=== PATIENT | female | born 1980 | race Caucasian/White ===

== ENCOUNTER 2020-06-26 19:05 | Emergency (ER) | payer MEDICAID, SELFPAY ==
--- NOTE | 2020-06-26 19:37 | XR_ITS ---
PROCEDURE: XR LUMBAR SPINE 2-3V CLINICAL INDICATION: PAIN Low back pain COMPARISON: No exams were available for comparison FINDINGS: No fracture or dislocation. No lytic or blastic change. There is normal mineralization. There is straightening of the lumbar lordosis. This is nonspecific but could be seen with muscle spasm. No significant degenerative change evident. There is mild tilting of the patient toward the left. A 2 mm calcific density is present just inferior to the left L1 transverse process and could be due to small stone in the kidney. Other findings:None. IMPRESSION: 1. No acute finding of the lumbar spine with straightening of lumbar lordosis and mild patient tilt. 2. Possible left nephrolithiasis Dictated by: Santana Ellis MD 06/27/2020 05:28 Santana Ellis MD in [place] 06/27/2020 05:28
[2020-06-26 19:38] VITALS: BP 140/73; PULSE 81; RESP 19; TEMP 36.8; O2SAT 98; BMI 26.6
[2020-06-26 19:43] VITALS: BP 140/73; PULSE 81; RESP 19; TEMP 36.8; O2SAT 98
--- NOTE | 2020-06-26 20:01 | HMH.EDUTC ---
[facility] [place] Clinical Impression: Low back pain Qualifiers: Chronicity: unspecified Back pain laterality: midline Sciatica presence: without sciatica Qualified Code(s): M54.5 - Low back pain Disposition: Home, Self-Care Condition on Discharge: Good Instructions: DI for Low Back Pain, DI for Chronic Pain -- Adult, Cyclobenzaprine, Etodolac Additional Instructions: *Etodolac donn 6 hours with meal as needed for pain/inflammation *Remember you had a Toradol shot in the clinic today, which is similar to Motrin and Etodolac and should last for 8-10 hours *Not additional anti-inflammatory like motrin, aleve, advil or ibuprofen with the above amount of etodalac You can still take Tylenol every 4 hours as needed if you need something else for pain *moist heat every 20 minutes 3-4 times a day to affected area *Muscle relaxer every 8 hours as needed for muscle spasms but remember, it WILL cause drowsiness You cannot take it and drive, operate machinery or care for small children. *Keep this area active, no movement leads to more stiffness, However take it easy and avoid heavy lifting pushing or pulling *Follow up with you family doctor if no improvement for further treatment Prescriptions: Etodolac [Etodolac 200mg Cap*] 200 mg PO Q6H PRN #20 cap PRN Reason: Moderate Pain Transmission Status: Received by [facility] Cyclobenzaprine HCl [Flexeril 10mg tablet] 10 mg PO TID PRN #15 tab PRN Reason: Muscle Spasm Transmission Status: Received by [facility] Referrals: PCP,No [Primary Care Provider] - As needed Time of Disposition: 20:15 Medical Decision Making - Dirk Inquiry Pt receiving controlled substance: No Dirk was queried for this patient: No Vital Signs: 06/26/20 19:38 06/26/20 19:43 Temperature 98.2 F 98.2 F Temperature Source Oral Pulse Rate 81 Pulse Rate [Left] 81 Respiratory Rate 19 19 Blood Pressure 140/73 Blood Pressure [Right Arm] 140/73 Blood Pressure Mean [Right Arm] 95 Blood Pressure Source [Right Arm] Automatic Cuff Blood Pressure Position [Right Arm] Sitting 02 Sat by Pulse Oximetry 98 Oxygen Delivery Method Room Air Orders (Tests/Meds): ED MEDICATIONS Discontinued Medications Generic Name Dose Route Start Last Admin Trade Name Freq PRN Reason Stop Dose Admin Ketorolac Tromethamine 60 mg 06/26/20 20:14 06/26/20 20:26 Ketorolac 60mg/2ml Vial IM 06/26/20 20:15 60 mg ONCE ONE Administration ORDERS Category Date Time Status XR lumbar spine 2-3V Stat Exams 06/26/20 19:37 Taken - Radiology Data #1 Image(s): L-Spine Image Reviewed: Yes I reviewed the patient's radiology image w/the ED provider Preliminary Findings: No Fracture Seen Medical Decision Narrative: Patient denies [facility] [place] HPI - General Stated complaint: back pain Time Seen by Provider: 06/26/20 20:02 Mode of Arrival: Ambulatory Source of Information: Patient Limitations: No Limitations Description of Symptoms (Recalled from Triage Doc. by RN): Lowere back pain x 2 weeks HEENT Symptoms (Recalled from RN notes): No Resp Symptoms (Recalled from RN notes): No Skin Symptoms (Recalled from RN notes): No MS Symptoms (Recalled from RN notes): Yes Functional Status (Recalled from RN notes): wnl - History of Present Illness Provider Complaint: Patient states that she has been having pain in her lower back area for about 2-3 wks That hurts worse when she moves arounds or bends State that she has been doing alot of lifting pulling and tugging Denies radiation of pain into buttock area or legs Denies loss of control of bowel or bladder denies known injury - Related Data Previous Rx's Medication Instructions Recorded Cyclobenzaprine HCl [Flexeril 10mg 10 mg PO TID PRN #15 tab 06/26/20 tablet] Etodolac [Etodolac 200mg Cap*] 200 mg PO Q6H PRN #20 cap 06/26/20 Allergies Allergy/AdvReac Type Severity Reaction Status Date / Time No Known All
== END 2020-06-26 20:47 | disposition home or self-care (01) ==
PROVIDERS: Emergency Provider Nurse Practitioner
DX: M54.5 Low back pain (principal)
CPT/HCPCS: 72100; 96372; 99202

== ENCOUNTER 2020-07-15 18:27 | Emergency (ER) | payer MEDICAID, SELFPAY ==
[2020-07-15 18:35] VITALS: BP 125/69; PULSE 76; RESP 19; TEMP 36.6; O2SAT 99; BMI 29.1
--- NOTE | 2020-07-15 18:43 | HMH.EDUTC ---
[facility] [place] Clinical Impression: Viral syndrome, Encounter for laboratory testing for COVID-19 virus Disposition: Home, Self-Care Condition on Discharge: Good Instructions: Coronavirus Disease 2019, COVID-19: Testing and Tracing, Preventing the Spread of Coronavirus Discharge Instructions Additional Instructions: *Monitor Temp, Over the counter Motrin or Tylenol as directed/as needed Tylenol every 4 hours and Motrin every 6 hours (as long as your family doctor has told you that you can take it) for fever or pain. and straight to ER if unable to lower temp less than 101.0 after medication given *Warm salt water gargles may help to soothe the throat *Throat Lozenges *Warm fluids like tea with honey may help to soothe the throat *Sleep elevated *Humidifier/Vaporizer Follow up IMMEDIATELY for new or worsening symptoms or no Noticeable improvement over the next 48-72 hours. 911 for difficulty breathing or swallowing You were tested for today for COVID19 your test result should be back in the next 24-48 hours, you may call to the [facility] to see if your test results are back in the next 48 hours [phone] [facility] hours are 9am-9pm You was given a handout with instructions for Self Quarantine and Self isolation for while you wait on test results and what to do if they are positive If you are positive the Health Dept will be contacting you also Prescriptions: Benzonatate [Tessalon Perle 100mg Cap*] 100 mg PO TID PRN #15 cap PRN Reason: Cough Transmission Status: Pending to [facility] Referrals: Miko Sharma MD [Primary Care Provider] - As needed Forms: Work/School Release Time of Disposition: 18:48 Medical Decision Making - Dirk Inquiry Pt receiving controlled substance: No Dirk was queried for this patient: No Vital Signs: 07/15/20 18:35 Temperature 97.8 F Temperature Source Oral Pulse Rate [Radial] 76 Respiratory Rate 19 Blood Pressure [Right Arm] 125/69 Blood Pressure Mean [Right Arm] 87 Blood Pressure Source [Right Arm] Automatic Cuff Blood Pressure Position [Right Arm] Sitting 02 Sat by Pulse Oximetry 99 Oxygen Delivery Method Room Air Orders (Tests/Meds): ORDERS Category Date Time Status Covid-19 Nasal PCR ([facility]) Routine Lab 07/15/20 18:34 Ordered [facility] [place] HPI - General Stated complaint: cough,SOA Time Seen by Provider: 07/15/20 18:43 Mode of Arrival: Ambulatory Source of Information: Patient Limitations: No Limitations Description of Symptoms (Recalled from Triage Doc. by RN): COUGH, SOB X 2 DAYS WANTS COVID TEST HEENT Symptoms (Recalled from RN notes): Yes Resp Symptoms (Recalled from RN notes): No Skin Symptoms (Recalled from RN notes): No MS Symptoms (Recalled from RN notes): No Functional Status (Recalled from RN notes): WNL - History of Present Illness Provider Complaint: Patient state that she has been having dry hacky like cough for several days and at times feels like she coughs so much she loses her breath States that she wanted to get tested for COVID States that she has been having some body aches and chills but denies fever and sore throat - Related Data Previous Rx's Medication Instructions Recorded Cyclobenzaprine HCl [Flexeril 10mg 10 mg PO TID PRN #15 tab 06/26/20 tablet] Etodolac [Etodolac 200mg Cap*] 200 mg PO Q6H PRN #20 cap 06/26/20 Benzonatate [Tessalon Perle 100mg 100 mg PO TID PRN #15 cap 07/15/20 Cap*] Allergies Allergy/AdvReac Type Severity Reaction Status Date / Time No Known Allergies Allergy Verified 06/26/20 19:45 - Worker's Comp Is this a Worker's Comp case?: No [facility] History - Hepatitis A Screen Drug use history?: No High risk sexual behaviors?: No History of sexually transmitted infection?: No Currently employed?: No Childcare worker?: No Do you have indoor plumbing?: Yes Do you have electricity?: Yes Attestation statement:: This patient has been screened for Hepatitis A risk factors. I have reviewed t
[2020-07-15 18:57] VITALS: BP 125/69; PULSE 76; RESP 19; TEMP 36.6; O2SAT 99
== END 2020-07-15 18:58 | disposition home or self-care (01) ==
PROVIDERS: Emergency Provider Nurse Practitioner; PCP Family Medicine
DX: Z20.828 Contact with and (suspected) exposure to other viral communicable diseases (principal); B34.9 Viral infection, unspecified
CPT/HCPCS: 99201; U0003

== ENCOUNTER 2020-08-02 16:18 | Emergency (ER) | payer MEDICAID, SELFPAY ==
[2020-08-02 16:19] VITALS: BP 118/62; PULSE 83; RESP 19; TEMP 37.2; O2SAT 99; BMI 26.6
--- NOTE | 2020-08-02 16:54 | HMH.EDUTC ---
[facility] [place]: Encounter for laboratory testing for COVID-19 virus, Sore throat (viral) Disposition: Home, Self-Care Condition on Discharge: Good Instructions: Sore Throat, DI for COVID-19 (Suspected or Confirmed ), Coronavirus Disease 2019, Preventing the Spread of Coronavirus Discharge Instructions Additional Instructions: *Monitor Temp, Over the counter Motrin or Tylenol as directed/as needed Tylenol every 4 hours and Motrin every 6 hours (as long as your family doctor has told you that you can take it) for fever or pain. and straight to ER if unable to lower temp less than 101.0 after medication given *Warm salt water gargles may help to soothe the throat *Throat Lozenges *Warm fluids like tea with honey may help to soothe the throat *Sleep elevated *Humidifier/Vaporizer Your throat swab was sent for culture. Those results are typically sent to your primary care. Be sure to follow up in 2-3 days with your family doctor/primary care physician if no improvement so they can review those result and treat if necessary. If you don?t have a primary care doctor, I recommend you get one but in the mean time, you will have to return to a walk in clinic Follow up IMMEDIATELY for new or worsening symptoms or no Noticeable improvement over the next 48-72 hours. 911 for difficulty breathing or swallowing You were tested for today for COVID19 your test result should be back in the next 24-48 hours, you may call to the [facility] to see if your test results are back in the next 48 hours [phone] [facility] hours are 9am-9pm You was given a handout with instructions for Self Quarantine and Self isolation for while you wait on test results and what to do if they are positive If you are positive the Health Dept will be contacting you also Referrals: PCP,No [Primary Care Provider] - As needed Forms: Work/School Release Time of Disposition: 16:56 Medical Decision Making - Dirk Inquiry Pt receiving controlled substance: No Dirk was queried for this patient: No Vital Signs: 08/02/20 16:19 Temperature 98.9 F Temperature Source Oral Pulse Rate [Right] 83 Respiratory Rate 19 Blood Pressure [Right Arm] 118/62 Blood Pressure Mean [Right Arm] 80 02 Sat by Pulse Oximetry 99 - Lab Data Lab results reviewed: Yes: I reviewed the patient's lab results. Orders (Tests/Meds): ORDERS Category Date Time Status Covid-19 Nasal PCR Sendout [facility] Routine Lab 08/02/20 17:00 [place] [facility] [place] - General Stated complaint: fever Time Seen by Provider: 08/02/20 16:54 Description of Symptoms (Recalled from Triage Doc. 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 COVID - Related Data Previous Rx's Medication Instructions Recorded Cyclobenzaprine HCl [Flexeril 10mg 10 mg PO TID PRN #15 tab 06/26/20 tablet] Etodolac [Etodolac 200mg Cap*] 200 mg PO Q6H PRN #20 cap 06/26/20 Benzonatate [Tessalon Perle 100mg 100 mg PO TID PRN #15 cap 07/15/20 Cap*] Allergies Allergy/AdvReac Type Severity Reaction Status Date / Time No Known Allergies Allergy Verified 06/26/20 19:45 - Worker's Comp Is this a Worker's Comp case?: No Is this an [facility] Worker's Comp?: No Is this a [employer] Worker's Comp?: No [facility] History - Hepatitis A Screen Drug use history?: No High risk sexual behaviors?: No History of sexually transmitted infection?: No Currently employed?: No Childcare worker?: No Do you have indoor plumbing?: Yes Do you have electricity?: Yes Attestation statement::
[2020-08-02 17:15] VITALS: BP 118/62; PULSE 83; RESP 19; TEMP 37.2; O2SAT 99
[2020-08-02 20:49] LABS: UTC Strep Screen (Rapid) Negative (Negative)
[2020-08-04 07:50] LABS: Covid-19 Nasal PCR Sendout P&C NEGATIVE
== END 2020-08-02 17:15 | disposition home or self-care (01) ==
PROVIDERS: Emergency Provider Nurse Practitioner
DX: Z20.822 Contact with and (suspected) exposure to COVID-19 (principal); J02.9 Acute pharyngitis, unspecified
CPT/HCPCS: 87880; 99202; G0463; U0004

== ENCOUNTER → 2020-08-24 17:05 | Outpatient (CLI) | payer MEDICAID, SELFPAY ==
[2020-08-24 17:20] LABS: Basophils # 0.1 K/mm3 (0-0.2); Basophils % 0.9 % (0.1-2.0); Eosinophils # 0.2 K/mm3 (0.0-0.4); Eosinophils % 2.4 % (0.1-12.0); Hematocrit 37.3 % (37.0-47.0); Hemoglobin 11.5 g/dL (12.2-16.2); Lymphocytes # 3.8 K/mm3 (0.7-4.5); Lymphocytes % 38.2 % (10-50); Mean Corpuscular HGB Conc 30.7 g/dL (31.8-35.4); Mean Corpuscular Hemoglobin 27.3 pg (27.0-31.2); Mean Corpuscular Volume 88.9 fl (81-99); Mean Platelet Volume 9.3 fl (7.4-10.4); Monocytes # 0.6 K/mm3 (0.1-1.0); Monocytes % 5.7 % (1.7-9.3); Neutrophils # 5.2 K/mm3 (1.8-7.8); Neutrophils % 52.7 % (37.0-80.0); Platelet Count 332 K/mm3 (142-424); Red Blood Count 4.19 M/mm3 (4.20-5.40); Red Cell Distribution Width 15.4 % (11.5-17.5); White Blood Count 9.9 K/mm3 (4.8-10.8)
[2020-08-24 17:50] LABS: Alanine Aminotransferase 13 U/L (12-78); Albumin Level 4.4 g/dl (3.5-5.0); Albumin/Globulin Ratio 1.3 (1.1-1.8); Alkaline Phosphatase 97 U/L (38-126); Anion Gap 10.1 mEq/L (5-15); Aspartate Amino Transferase 24 U/L (14-36); Bilirubin,Total 0.5 mg/dl (0.2-1.3); Blood Urea Nitrogen 12 mg/dl (7-17); Carbon Dioxide 28 mmol/L (22.0-30.0); Chloride 104 mmol/L (98-107); Chol/HDL Ratio 3.8 (1-3.5); Cholesterol 196 mg/dl (140-200); Estimated Glomerular Filt Rate 80 ml/min (>60); GFR (African American) 97 ML/MIN (>60); Globulin 3.4 g/dL (1.3-3.2); Glucose 81 mg/dl (74-100); HDL Cholesterol 51 mg/dl (40-60); Potassium 4.1 mmoL/L (3.5-5.1); Sodium 138 mmol/L (136-145); Total Protein,Serum 7.8 g/dl (6.3-8.2); Triglycerides 209 mg/dl (30-150); VLDL Cholesterol 42 mg/dL (0-40)
[2020-08-24 18:01] LABS: Direct LDL Cholesterol 110.76 mg/dL (100-129)
[2020-08-24 18:07] LABS: T4 (Thyroxine) 9.6 ug/dl (5.53-11.0)
== END ==
PROVIDERS: Visit Provider Nurse Practitioner Family
DX: R53.83 Other fatigue (principal)
CPT/HCPCS: 80053; 80061; 84436; 84443; 85025

== ENCOUNTER 2020-10-27 06:41 | Emergency (ER) | payer MEDICAID, SELFPAY ==
[2020-10-27 06:41] VITALS: BP 135/62; PULSE 75; RESP 18; TEMP 36.9; O2SAT 99; BMI 26.6
--- NOTE | 2020-10-27 06:42 | ECG_ITS ---
APPROVED REPORT Exam: Resting ECG HR:73 bpm ECG Measurements Heart Rate 73 AXES OH 134 P 58 QRSd 66 QRS 68 QT 360 T 49 QTc 396 Conclusion Normal sinus rhythm Normal ECG Electronically signed by : Miko Chacon, 10/28/2020 08:41:47
--- NOTE | 2020-10-27 06:49 | XR_ITS ---
PROCEDURE: XR CHEST 2V CLINICAL HISTORY: cp COMPARISON: No exams were available for comparison FINDINGS: The cardiomediastinal silhouette and pulmonary vascularity are within normal limits. The lungs are clear without infiltrates, suspicious nodules, or pleural effusions. No acute bony abnormalities. There is mild serpentine scoliotic curvature thoracic spine. IMPRESSION: No acute findings. Dictated by: Dr. Randy Mayorga MD 10/27/2020 08:23 Dr. Randy Mayorga MD in [place] 10/27/2020 08:23
--- NOTE | 2020-10-27 06:49 | CT_ITS ---
PROCEDURE: CT ANGIO CHEST CLINCIAL INDICATION: cp COMPARISON: No exams were available for comparison TECHNIQUE: IV Contrast: 70ML Isovue 370 Axial images obtained with sagittal and coronal reformats. All CT scans at the facility use one or more dose reduction, viz: automated exposure control, ma/kV adjustment per patient size (including targeted exams where dose is matched to indication, i.e. head), or iterative reconstruction technique. FINDINGS: HEART AND MEDIASTINAL STRUCTURES: Cardiac size normal there is no pericardial effusion. There is excellent vascular opacification no CT evidence of pulmonary emboli. No evidence of aortic dissection. LUNGS AND PLEURAL SPACES: The lung heath are well expanded appear clear of infiltrate. There is no pleural fluid. BONY STRUCTURES: There is mild serpentine scoliotic curvature of thoracic spine primary levo scoliotic curvature upper thoracic spine and mild compensatory dextro scoliotic curvature of the lower thoracic spine and thoracolumbar junction. UPPER ABDOMEN: Unremarkable. ADDITIONAL FINDINGS: There is a 1.2 cm mass in the right breast just deep to the nipple and strongly recommend follow-up mammograms for additional evaluation. IMPRESSION: 1. No evidence of pulmonary emboli 1. No evidence of pneumonia or pleural fluid 2. Small fairly well-defined mass right breast with fairly well-defined borders and fibroadenoma is most likely however strongly recommend follow-up mammograms Dictated by: Dr. Randy Mayorga MD 10/27/2020 07:49 Dr. Randy Mayorga MD in [place] 10/27/2020 07:49
[2020-10-27 06:58] LABS: Basophils # 0.1 K/mm3 (0-0.2); Basophils % 0.8 % (0.1-2.0); Chloride 107 mmol/L (98-107); Eosinophils # 0.3 K/mm3 (0.0-0.4); Eosinophils % 3.2 % (0.1-12.0); Hematocrit 37.4 % (37.0-47.0); Lymphocytes # 3.4 K/mm3 (0.7-4.5); Lymphocytes % 40.6 % (10-50); Mean Corpuscular HGB Conc 32.1 g/dL (31.8-35.4); Mean Corpuscular Hemoglobin 28.1 pg (27.0-31.2); Mean Corpuscular Volume 87.7 fl (81-99); Mean Platelet Volume 7.7 fl (7.4-10.4); Monocytes # 0.4 K/mm3 (0.1-1.0); Monocytes % 5.1 % (1.7-9.3); Neutrophils # 4.2 K/mm3 (1.8-7.8); Neutrophils % 50.2 % (37.0-80.0); Platelet Count 290 K/mm3 (142-424); Red Blood Count 4.26 M/mm3 (4.20-5.40); Red Cell Distribution Width 16.6 % (11.5-17.5); Sodium 140 mmol/L (136-145); White Blood Count 8.3 K/mm3 (4.8-10.8)
[2020-10-27 06:59] LABS: Potassium 3.9 mmoL/L (3.5-5.1)
[2020-10-27 07:01] LABS: Alanine Aminotransferase 18 U/L (12-78); Amylase 103 U/L (30-110); Anion Gap 9.9 mEq/L (5-15); Aspartate Amino Transferase 31 U/L (14-36); Bilirubin,Unconjugated 0.2 mg/dL (0.0-1.1); Blood Urea Nitrogen 14 mg/dl (7-17); Calcium 9.7 mg/dl (8.4-10.2); Carbon Dioxide 27 mmol/L (22.0-30.0); Creatinine Clearance Estimated 107 mL/min (50-200); Estimated Glomerular Filt Rate 79 ml/min (>60); GFR (African American) 96 ML/MIN (>60); Glucose 104 mg/dl (74-100)
[2020-10-27 07:02] LABS: Albumin Level 4.3 g/dl (3.5-5.0); Alkaline Phosphatase 107 U/L (38-126); Bilirubin,Direct 0.2 mg/dl (0.0-0.4); Bilirubin,Indirect 0.2 mg/dL (0.0-0.9); Bilirubin,Total 0.4 mg/dl (0.2-1.3); Lipase 90 U/L (23-300); Total Protein,Serum 7.3 g/dl (6.3-8.2)
[2020-10-27 07:08] LABS: Microscopic, Urine URINE MICROSCOPIC (MICROSCOPIC)
[2020-10-27 07:12] LABS: Appearance,Urine CLEAR (Clear); Bilirubin,Urine Negative (Negative); Blood, Urine Negative (Negative); Color,Urine YELLOW (Yellow); Glucose,Urine (UA) Negative (Negative); Ketones,Urine Negative (Negative); Leukocyte Esterase,Urine Negative (Negative); Nitrate,Urine POSITIVE (Negative); Protein,Urine Negative (Negative); Specific Gravity, Urine 1.025 (1.005-1.030); Urobilinogen,Urine 0.2 EU/dl (0.2)
[2020-10-27 07:14] LABS: Urine Pregnancy, HCG Qual. Negative (Negative)
[2020-10-27 07:14] LABS: Troponin I < 0.01 ng/ml (0.00-0.034)
[2020-10-27 07:15] LABS: HCG Qualitative, Serum Negative (Negative)
--- NOTE | 2020-10-27 07:35 | HMH.EDGENADL ---
ED Disposition Clinical Impression: Atypical chest pain, Breast mass in female Shoulder joint painful on movement Qualifiers: Laterality: right Qualified Code(s): M25.511 - Pain in right shoulder Urinary tract infection Qualifiers: Urinary tract infection type: acute cystitis Hematuria presence: without hematuria Qualified Code(s): N30.00 - Acute cystitis without hematuria Disposition: Home, Self-Care Condition on Discharge: Good Additional Instructions: Follow up with primary care for a mammogram and followup of breast mass. Finish the entire course of antibiotics for UTI. Use tylenol, ibuprofen, and ice for shoulder pain and sling for comfort while awake and return to the ED for any new or worsening symptoms. Prescriptions: Cefdinir [Omnicef 300mg Capsule] 300 mg PO BID #20 cap Transmission Status: Pending to [facility] Referrals: Chuy Bravo MD [Primary Care Provider] - Time of Disposition: 08:23 - Critical Care Critical Care Time: No Attestation: On 10/27/20, the high probability of a clinically significant, sudden or life threatening deterioration of the following system(s) required my full and direct attention, intervention and personal management. The time I documented below is in addition to time spent performing reported procedures but includes the following listed in this critical care notation. Medical Decision Making - Medical Records Medical records reviewed: Yes: I reviewed the patient's medical records. - Dirk Inquiry Pt receiving controlled substance: No Vital Signs: 10/27/20 06:41 Temperature 98.4 F Temperature Source Oral Pulse Rate [Left Radial] 75 Respiratory Rate 18 Blood Pressure [Right Arm] 135/62 Blood Pressure Mean [Right Arm] 86 Blood Pressure Source [Right Arm] Automatic Cuff Blood Pressure Position [Right Arm] Supine 02 Sat by Pulse Oximetry 99 Oxygen Delivery Method Room Air - Lab Data Lab Results 10/27/20 06:45: WBC 8.3, RBC 4.26, Hgb 12.0 L, Hct 37.4, MCV 87.7, MCH 28.1, MCHC 32.1, RDW 16.6, Plt Count 290, MPV 7.7, Neut % (Auto) 50.2, Lymph % (Auto) 40.6, [place] % (Auto) 5.1, Eos % (Auto) 3.2, Baso % (Auto) 0.8, Neut # (Auto) 4.2, Lymph # (Auto) 3.4, [place] # (Auto) 0.4, Eos # (Auto) 0.3, Baso # (Auto) 0.1 10/27/20 06:45: Sodium 140, Potassium 3.9, Chloride 107, Carbon Dioxide 27, Anion Gap 9.9, BUN 14, Creatinine 0.80, Estimated Creat Clear 107, Estimated GFR 79, Est GFR ( Amer) 96, Glucose 104 H, Calcium 9.7, Total Bilirubin 0.4, Direct Bilirubin 0.2, Conjugated Bilirubin 0.0, Indirect Bilirubin 0.2, Unconjugated Bilirubin 0.2, AST 31, ALT 18, Alkaline Phosphatase 107, Troponin I < 0.01, Total Protein 7.3, Albumin 4.3, Amylase 103 10/27/20 06:45: Lipase 90 10/27/20 06:45: Serum HCG, Qual Negative 10/27/20 06:58: Urine Color Yellow, Urine Appearance Clear, Urine pH 6.0, Ur Specific [place] 1.025, Urine Protein Negative, Urine Glucose (UA) Negative, Urine Ketones Negative, Urine Blood Negative, Urine Nitrate Positive, Urine Bilirubin Negative, Urine Urobilinogen 0.2, Ur Leukocyte Esterase Negative, Urine RBC None, Urine WBC 3-5, Ur Squamous Epith Cells 3-5, Urine Bacteria None 10/27/20 06:58: Urine HCG, Qual Negative Result diagrams: 10/27/20 06:45 10/27/20 06:45 Orders (Tests/Meds): ED MEDICATIONS Discontinued Medications Generic Name Dose Route Start Last Admin Trade Name Freq PRN Reason Stop Dose Admin Aspirin 324 mg 10/27/20 06:50 10/27/20 06:52 Aspirin 81mg Chewable Tablet PO 10/27/20 06:51 324 mg ONCE ONE Administration Sodium Chloride 1,000 mls @ 999 mls/hr 10/27/20 07:00 10/27/20 06:51 Sod Chlor 0.9% 1000ml Bag IV 10/27/20 08:00 999 mls/hr .Q1H1M ADOLPH Administration Iopamidol 70 ml 10/27/20 07:38 10/27/20 07:39 Iopamidol-370 (76%);100ml Bottle IV 10/27/20 07:39 70 ml ONCE ONE Administration Ketorolac Tromethamine 30 mg 10/27/20 06:49 10/27/20 06:51 Ketorolac 30mg/Ml Vial IV
[2020-10-27 08:39] VITALS: BP 122/68; PULSE 78; RESP 16; TEMP 36.6; O2SAT 98
== END 2020-10-27 08:41 | disposition home or self-care (01) ==
PROVIDERS: Emergency Provider Student in an Organized Health Care Education/Training Program; PCP Emergency Medicine
DX: R07.89 Other chest pain (principal); M25.511 Pain in right shoulder; N30.00 Acute cystitis without hematuria; N63.10 Unspecified lump in the right breast, unspecified quadrant; F17.210 Nicotine dependence, cigarettes, uncomplicated
CPT/HCPCS: 71046; 71275; 80048; 80076; 81001; 81025; 82150; 83690; 84484; 84703; 85025; 93005; 96365; 96375; 99283; J2405; Q9967

== ENCOUNTER → 2020-11-02 10:31 | Outpatient (CLI) | payer MEDICAID, SELFPAY ==
--- NOTE | 2020-11-02 | US_ITS ---
PROCEDURE: US BREAST RT COMPLETE CLINICAL INDICATION: Nodular lesion right breast seen on CT scan COMPARISON: No exams were available for comparison FINDINGS: There is an isoechoic solid mass 7 o'clock position near the nipple with homogeneous internal echogenicity measuring 1.4 x 1.0 by 1.3 cm and this almost surely represents and a fibroadenoma. In addition there is a small benign-appearing cystic lesion at the 10 o'clock position near the nipple measuring 0.6 cm. There is a small hypoechoic cystic lesion at the 12 o'clock clock position measuring 0.6 x 0.3 by 0.5 cm. There are couple normal appearing nodes in the axilla. IMPRESSION: Probable fibroadenoma as described however in view of its size and the fact that the mammogram is a baseline study recommend the patient return in 6 months for follow-up right mammogram and right ultrasound for continuing evaluation Dictated by: Dr. Randy Mayorga MD 11/07/2020 13:39 Dr. Randy Mayorga MD in [place] 11/07/2020 13:39
--- NOTE | 2020-11-02 10:35 | MM_ITS ---
PROCEDURE: MM DIG MAMM BI DX W/CAD Digital Breast Tomosynthesis Included CLINICAL INDICATION: rt breast nodule showed on ct scan There is no personal or family history of breast cancer. COMPARISON: This is a baseline exam, patient without complaints TECHNIQUE: Standard CC and MLO images and 3D Tomosynthesis was obtained. R2 CAD reviewed. FINDINGS: Moderate scattered fibroglandular densities are seen in both breasts. There is a dominant mass with fairly smooth borders just deep to the nipple right breast. A questionable area of asymmetry left breast appears to press out on additional views and genie images reveal no suspicious abnormality. There is a small well-defined nodular density near the axillary tail right breast likely a low-lying node. Ultrasound performed the same date shows fairly well-defined solid nodule 7 o'clock position near the nipple corresponding in size and location to the dominant mass density on the mammogram with homogeneous internal echogenicity in this almost surely represents a fibroadenoma. However in view of its size recommend the patient return for six-month follow-up right mammogram and ultrasound for continuing evaluation. IMPRESSION: Fibrofatty parenchyma with dominant density right breast likely a fibroadenoma BI-RAD Category: 3 Probably Benign Finding Short Term Follow-up FOLLOW-UP: 6M 6Month Follow-up (A letter has been sent to the patient regarding results of the study.) Dictated by: Dr. Randy Mayorga MD 11/07/2020 13:32 Dr. Randy Mayorga MD in [place] 11/07/2020 13:32
== END ==
PROVIDERS: PCP Emergency Medicine; Visit Provider Nurse Practitioner Family
DX: N63.10 Unspecified lump in the right breast, unspecified quadrant (principal)
CPT/HCPCS: 76641; 77062; 77066; G0279

== ENCOUNTER 2020-11-27 17:28 | Emergency (ER) | payer MEDICAID, SELFPAY ==
[2020-11-27 18:10] VITALS: BP 144/77; PULSE 86; RESP 19; TEMP 36.9; O2SAT 98; BMI 29.1
[2020-11-27 18:31] LABS: UTC Strep Screen (Rapid) Positive (Negative)
--- NOTE | 2020-11-27 18:35 | HMH.EDUTC ---
[facility] [place] Disposition Clinical Impression: Strep throat Disposition: Home, Self-Care Condition on Discharge: Good Instructions: DI for Strep Throat Additional Instructions: Start antibiotics today be sure to take it as ordered with the full length of time although you should start feeling better in 24-48 hours. Change toothbrush and toothpaste 24-48 hours after starting antibiotics Tylenol or Motrin as needed for fever or pain Encourage fluids, water, Gatorade, Powerade, try cold fluids, popsicles, ice cream will make it feel better You are contagious for 24 hours. Avoid kissing anyone, no eating or drinking after anyone. You are contagious. Follow-up the ER for new or worsening symptoms or no noticeable improvement over the next 24-48 hours. Follow-up with PCP this week. self isolate until covid test is known to be neg Prescriptions: Amoxicillin [Amoxicillin 500mg Tab] 500 mg PO BID 10 Days #20 tab Transmission Status: Pending to [facility] ondansetron HCL [Zofran 4mg Tab*] 4 mg PO TIDP PRN 3 Days #14 tab PRN Reason: Nausea Transmission Status: Pending to [facility] Referrals: Chuy Bravo MD [Primary Care Provider] - Time of Disposition: 18:43 Medical Decision Making - Dirk Inquiry Pt receiving controlled substance: No Vital Signs: 11/27/20 18:10 Temperature 98.4 F Temperature Source Oral Pulse Rate [Right Brachial] 86 Respiratory Rate 19 Blood Pressure [Right Arm] 144/77 H Blood Pressure Mean [Right Arm] 99 Blood Pressure Source [Right Arm] Automatic Cuff Blood Pressure Position [Right Arm] Sitting 02 Sat by Pulse Oximetry 98 Oxygen Delivery Method Room Air - Lab Data Lab Results 11/27/20 18:30: Strep Scn [facility] Positive A Orders (Tests/Meds): ED MEDICATIONS Discontinued Medications Generic Name Dose Route Start Last Admin Trade Name Freq PRN Reason Stop Dose Admin Ondansetron HCl 4 mg 11/27/20 18:16 11/27/20 18:21 Ondansetron 4mg Odt SL 11/27/20 18:17 4 mg ONCE ONE Administration ORDERS Category Date Time Status Covid-19 Nasal PCR ([facility]) Routine Lab 11/27/20 18:30 Ordered [facility] [place] HPI - General Chief complaint: Urgent [facility] Stated complaint: hot flashes,vomiting Time Seen by Provider: 11/27/20 18:35 Mode of Arrival: Ambulatory Source of Information: Patient Limitations: No Limitations Description of Symptoms (Recalled from Triage Doc. by RN): PATIENT C/O NAUSEA, VOMITING, AND HOT FLASHES SINCE THIS MORNING HEENT Symptoms (Recalled from RN notes): No Resp Symptoms (Recalled from RN notes): No Skin Symptoms (Recalled from RN notes): No MS Symptoms (Recalled from RN notes): No Functional Status (Recalled from RN notes): WNL - History of Present Illness Provider Complaint: 40 yr old female presents for nausea and hot flashes. pt states she feels like she is going to throw up and she is having hot flashes - Related Data Previous Rx's Medication Instructions Recorded Amoxicillin [Amoxicillin 500mg Tab] 500 mg PO BID 10 Days #20 tab 11/27/20 ondansetron HCL [Zofran 4mg Tab*] 4 mg PO TIDP PRN 3 Days #14 tab 11/27/20 Allergies Allergy/AdvReac Type Severity Reaction Status Date / Time No Known Allergies Allergy Verified 11/16/20 11:41 - Worker's Comp Is this a Worker's Comp case?: No [facility] History - Hepatitis A Screen Drug use history?: No High risk sexual behaviors?: No History of sexually transmitted infection?: No Currently employed?: No Childcare worker?: No Do you have indoor plumbing?: Yes Do you have electricity?: Yes Attestation statement:: This patient has been screened for Hepatitis A risk factors. I have reviewed the patient's past medical history: Yes Other Surgeries: Yes: No Previous Surgery Amputation: No Fractures: No - Social History Smoking Status: Current every day smoker # Packs/Day (cigarettes): 1 Alcohol Intake: never Alcohol Intake Frequency:: holida
[2020-11-27 18:41] VITALS: BP 144/77; PULSE 86; RESP 19; TEMP 36.9; O2SAT 98
== END 2020-11-27 18:45 | disposition home or self-care (01) ==
PROVIDERS: Emergency Provider Nurse Practitioner Family; PCP Emergency Medicine
DX: J02.0 Streptococcal pharyngitis (principal); F17.210 Nicotine dependence, cigarettes, uncomplicated
CPT/HCPCS: 87880; 99202; G0463; U0003

== ENCOUNTER → 2020-12-26 16:16 | Outpatient (CLI) | payer MEDICAID, SELFPAY | PROVIDERS: PCP Nurse Practitioner Family; Visit Provider Nurse Practitioner Family | DX: Z20.822 Contact with and (suspected) exposure to COVID-19 (principal) | CPT/HCPCS: U0003 ==

== ENCOUNTER 2021-01-08 20:21 | Emergency (ER) | payer MEDICAID, SELFPAY ==
[2021-01-08 20:25] VITALS: BP 116/69; PULSE 89; RESP 19; TEMP 36.9; O2SAT 98; BMI 28.6
--- NOTE | 2021-01-08 20:44 | HMH.EDUTC ---
[facility] [place] Disposition Clinical Impression: Encounter for laboratory testing for COVID-19 virus Disposition: Home, Self-Care Condition on Discharge: Good Instructions: DI for COVID-19 (Suspected or Confirmed ), Coronavirus Disease 2019, Preventing the Spread of Coronavirus Discharge Instructions Additional Instructions: *Monitor Temp, Over the counter Motrin or Tylenol as directed/as needed Tylenol every 4 hours and Motrin every 6 hours (as long as your family doctor has told you that you can take it) for fever or pain. and straight to ER if unable to lower temp less than 101.0 after medication given Follow up IMMEDIATELY for new or worsening symptoms or no Noticeable improvement over the next 48-72 hours. 911 for difficulty breathing or swallowing You were tested for today for COVID19 your test result should be back in the next 24-48 hours, you may call to the [facility] to see if your test results are back in the next 48 hours [phone] [facility] hours are 9am-9pm You was given a handout with instructions for Self Quarantine and Self isolation for while you wait on test results and what to do if they are positive If you are positive the Health Dept will be contacting you also Referrals: Ela Pizarro APRN [Primary Care Provider] - As needed Forms: Work/School Release Time of Disposition: 20:50 Medical Decision Making - Dirk Inquiry Pt receiving controlled substance: No Dirk was queried for this patient: No Vital Signs: 01/08/21 20:25 Temperature 98.4 F Temperature Source Oral Pulse Rate [Right Brachial] 89 Respiratory Rate 19 Blood Pressure [Right Arm] 116/69 Blood Pressure Mean [Right Arm] 84 Blood Pressure Source [Right Arm] Automatic Cuff Blood Pressure Position [Right Arm] Sitting 02 Sat by Pulse Oximetry 98 Orders (Tests/Meds): ORDERS Category Date Time Status Covid-19 Nasal PCR ([facility]) Routine Lab 01/08/21 20:41 Ordered [facility] [place] HPI - General Stated complaint: fever, headache Time Seen by Provider: 01/08/21 20:44 Mode of Arrival: Family Vehicle Description of Symptoms (Recalled from Triage Doc. by RN): PT STATES SHE NEEDS TESTED FOR COVID DUE TO BEING EXPOSED TO POSITIVE FAMILY MEMBER ON SAT. DENIES ANY FEVERS AT THIS TIME. HEENT Symptoms (Recalled from RN notes): No Resp Symptoms (Recalled from RN notes): No Skin Symptoms (Recalled from RN notes): No MS Symptoms (Recalled from RN notes): No Functional Status (Recalled from RN notes): WNL - History of Present Illness Provider Complaint: Patient states that she was around family member on Sat that has tested positive for COVID State that she had low grade fever and achy like headache this morning State that she hasnt got a fever now and headache better after medication State that she wanted to get tested due to exposure - Related Data Previous Rx's Medication Instructions Recorded Amoxicillin [Amoxicillin 500mg Tab] 500 mg PO BID 10 Days #20 tab 11/27/20 ondansetron HCL [Zofran 4mg Tab*] 4 mg PO TIDP PRN 3 Days #14 tab 11/27/20 Allergies Allergy/AdvReac Type Severity Reaction Status Date / Time No Known Allergies Allergy Verified 11/16/20 11:41 - Worker's Comp Is this a Worker's Comp case?: No [facility] History - Hepatitis A Screen Drug use history?: No High risk sexual behaviors?: No History of sexually transmitted infection?: No Currently employed?: No Childcare worker?: No Do you have indoor plumbing?: Yes Do you have electricity?: Yes Attestation statement:: This patient has been screened for Hepatitis A risk factors. I have reviewed the patient's past medical history: Yes Other Surgeries: Yes: No Previous Surgery Amputation: No Fractures: No - Social History Smoking Status: Current every day smoker # Packs/Day (cigarettes): 1 Alcohol Intake: never Alcohol Intake Frequency:: holidays/special occasions only Occupational Status: other Housing: house Household Members: significant other Family Hx:: No significant
[2021-01-08 20:53] VITALS: BP 116/69; PULSE 89; RESP 19; TEMP 36.9; O2SAT 98
== END 2021-01-08 20:56 | disposition home or self-care (01) ==
PROVIDERS: Emergency Provider Nurse Practitioner; PCP Nurse Practitioner Family
DX: Z20.822 Contact with and (suspected) exposure to COVID-19 (principal); R50.9 Fever, unspecified; R51.9 Headache, unspecified; F17.210 Nicotine dependence, cigarettes, uncomplicated
CPT/HCPCS: 99202; G0463; U0003

== ENCOUNTER 2021-01-23 08:14 | Emergency (ER) | payer MEDICAID, SELFPAY ==
[2021-01-23 08:15] VITALS: BP 118/66; PULSE 72; RESP 16; TEMP 36.6; O2SAT 98; BMI 28.3
--- NOTE | 2021-01-23 08:34 | HMH.EDGENADL ---
ED Disposition Clinical Impression: Hot flashes Vomiting Qualifiers: Vomiting type: unspecified Vomiting Intractability: non-intractable Nausea presence: with nausea Qualified Code(s): R11.2 - Nausea with vomiting, unspecified Disposition: Home, Self-Care Condition on Discharge: Good Instructions: DI for Nausea -- Adult Additional Instructions: Zofran as needed for nausea. Follow-up with your primary care doctor, call for appointment. Return to the emergency department if symptoms worsening. Prescriptions: Ondansetron [Zofran 4mg ODT] 4 mg PO TIDP PRN #10 tab.rapdis PRN Reason: Nausea And Vomiting Transmission Status: Pending to [facility] Referrals: Ela Pizarro APRN [Primary Care Provider] - - Critical Care Critical Care Time: No Attestation: On , the high probability of a clinically significant, sudden or life threatening deterioration of the following system(s) required my full and direct attention, intervention and personal management. The time I documented below is in addition to time spent performing reported procedures but includes the following listed in this critical care notation. Medical Decision Making - Dirk Inquiry Pt receiving controlled substance: No Vital Signs: 01/23/21 08:15 Temperature 97.9 F Temperature Source Oral Pulse Rate [Right] 72 Respiratory Rate 16 Blood Pressure [Right Arm] 118/66 Blood Pressure Mean [Right Arm] 83 02 Sat by Pulse Oximetry 98 Oxygen Delivery Method Room Air - Lab Data Lab Results 01/23/21 08:34: Urine Color Yellow, Urine Appearance Clear, Urine pH 7.0, Ur Specific [place] 1.010, Urine Protein Negative, Urine Glucose (UA) Negative, Urine Ketones Negative, Urine Blood Negative, Urine Nitrate Negative, Urine Bilirubin Negative, Urine Urobilinogen 0.2, Ur Leukocyte Esterase Negative, Urine RBC None, Urine WBC 3-5, Ur Squamous Epith Cells 3-5, Urine Bacteria None 01/23/21 08:49: WBC 7.4, RBC 4.18 L, Hgb 12.0 L, Hct 37.4, MCV 89.5, MCH 28.8, MCHC 32.1, RDW 15.7, Plt Count 262, MPV 7.9, Neut % (Auto) 66.5, Lymph % (Auto) 24.7, [place] % (Auto) 4.6, Eos % (Auto) 3.5, Baso % (Auto) 0.7, Neut # (Auto) 5.0, Lymph # (Auto) 1.8, [place] # (Auto) 0.3, Eos # (Auto) 0.3, Baso # (Auto) 0.1 01/23/21 08:49: Sodium 140, Potassium 4.3, Chloride 109 H, Carbon Dioxide 23, Anion Gap 12.3, BUN 13, Creatinine 0.60, Estimated Creat Clear 152, Estimated GFR 111, Est GFR ( Amer) 134, Glucose 105 H, Calcium 9.0, Total Bilirubin 0.4, AST 26, ALT 14, Alkaline Phosphatase 94, Troponin I < 0.01, Total Protein 7.4, Albumin 4.3, Globulin 3.1, Albumin/Globulin Ratio 1.4 01/23/21 08:49: Lipase 50 01/23/21 09:25: Urine HCG, Qual Negative Result diagrams: 01/23/21 08:49 01/23/21 08:49 Orders (Tests/Meds): ED MEDICATIONS Discontinued Medications Generic Name Dose Route Start Last Admin Trade Name Freq PRN Reason Stop Dose Admin Ondansetron HCl 4 mg 01/23/21 08:34 01/23/21 08:45 Ondansetron 4mg/2ml Vial IV 01/23/21 08:35 4 mg ONCE ONE Administration Sodium Chloride 1,000 ml 01/23/21 08:34 01/23/21 08:45 Sodium Chloride 0.9% 1000ml Bag IV 01/23/21 08:35 1,000 ml BOLUS ONE Administration ORDERS Category Date Time Status Troponin I Q3H Lab 01/23/21 11:45 Ordered Troponin I Q3H Lab 01/23/21 14:45 Ordered - ECG Data Tracing #1 EKG interpreted by Rico Weller MD: Rhythm: sinus Rate: [address]: normal Ectopy: none Conduction: normal ST Segment Changes: none T Wave Changes: none Q Waves: none No evidence of acute ischemia or injury Normal electrocardiogram - Reevaluation(s) Time: 11:25 Reevaluation #1: Feeling a little better Medical Decision Narrative: Patient symptoms are chronic and recurrent in nature. I discussed with her her expectations for the visit, whether she wanted further work-up for whether she just wanted treatment for her nausea. She says I don't care . Work-up ordered.
--- NOTE | 2021-01-23 08:41 | ECG_ITS ---
APPROVED REPORT Exam: Resting ECG HR:68 bpm ECG Measurements Heart Rate 68 AXES DC 140 P 60 QRSd 64 QRS 51 QT 378 T 55 QTc 401 Conclusion Normal sinus rhythm Normal ECG Electronically signed by : Miko Chacon, 01/23/2021 17:43:17
[2021-01-23 09:00] LABS: Basophils # 0.1 K/mm3 (0-0.2); Basophils % 0.7 % (0.1-2.0); Eosinophils # 0.3 K/mm3 (0.0-0.4); Eosinophils % 3.5 % (0.1-12.0); Hematocrit 37.4 % (37.0-47.0); Lymphocytes # 1.8 K/mm3 (0.7-4.5); Lymphocytes % 24.7 % (10-50); Mean Corpuscular HGB Conc 32.1 g/dL (31.8-35.4); Mean Corpuscular Hemoglobin 28.8 pg (27.0-31.2); Mean Corpuscular Volume 89.5 fl (81-99); Mean Platelet Volume 7.9 fl (7.4-10.4); Monocytes # 0.3 K/mm3 (0.1-1.0); Monocytes % 4.6 % (1.7-9.3); Neutrophils % 66.5 % (37.0-80.0); Platelet Count 262 K/mm3 (142-424); Red Blood Count 4.18 M/mm3 (4.20-5.40); Red Cell Distribution Width 15.7 % (11.5-17.5); White Blood Count 7.4 K/mm3 (4.8-10.8)
[2021-01-23 09:07] LABS: Chloride 109 mmol/L (98-107); Potassium 4.3 mmoL/L (3.5-5.1); Sodium 140 mmol/L (136-145)
[2021-01-23 09:09] LABS: Blood Urea Nitrogen 13 mg/dl (7-17); Creatinine Clearance Estimated 152 mL/min (50-200); Estimated Glomerular Filt Rate 111 ml/min (>60); GFR (African American) 134 ML/MIN (>60)
[2021-01-23 09:10] LABS: Alanine Aminotransferase 14 U/L (12-78); Albumin Level 4.3 g/dl (3.5-5.0); Albumin/Globulin Ratio 1.4 (1.1-1.8); Alkaline Phosphatase 94 U/L (38-126); Anion Gap 12.3 mEq/L (5-15); Aspartate Amino Transferase 26 U/L (14-36); Bilirubin,Total 0.4 mg/dl (0.2-1.3); Carbon Dioxide 23 mmol/L (22.0-30.0); Globulin 3.1 g/dL (1.3-3.2); Glucose 105 mg/dl (74-100); Total Protein,Serum 7.4 g/dl (6.3-8.2)
[2021-01-23 09:22] LABS: Troponin I < 0.01 ng/ml (0.00-0.034)
[2021-01-23 09:27] LABS: Microscopic, Urine URINE MICROSCOPIC (MICROSCOPIC)
[2021-01-23 09:31] LABS: Appearance,Urine CLEAR (Clear); Bilirubin,Urine Negative (Negative); Blood, Urine Negative (Negative); Color,Urine YELLOW (Yellow); Glucose,Urine (UA) Negative (Negative); Ketones,Urine Negative (Negative); Leukocyte Esterase,Urine Negative (Negative); Nitrate,Urine Negative (Negative); Protein,Urine Negative (Negative); Urobilinogen,Urine 0.2 EU/dl (0.2)
[2021-01-23 09:32] LABS: Urine Pregnancy, HCG Qual. Negative (Negative)
[2021-01-23 11:10] LABS: Lipase 50 U/L (23-300)
[2021-01-23 11:43] VITALS: BP 111/79; PULSE 62; RESP 18; TEMP 36.6; O2SAT 100
== END 2021-01-23 11:43 | disposition home or self-care (01) ==
PROVIDERS: Emergency Provider Emergency Medicine; PCP Nurse Practitioner Family
DX: R11.2 Nausea with vomiting, unspecified (principal); R23.2 Flushing; F17.210 Nicotine dependence, cigarettes, uncomplicated
CPT/HCPCS: 80053; 81001; 81025; 83690; 84484; 85025; 93005; 96365; 96375; 99283; J2405

== ENCOUNTER 2021-01-24 17:29 | Emergency (ER) | payer MEDICAID, SELFPAY ==
[2021-01-24 17:30] VITALS: BP 121/77; PULSE 101; RESP 19; TEMP 37.3; O2SAT 98; BMI 30.1
[2021-01-24 18:57] VITALS: BP 168/53; PULSE 65; RESP 18; TEMP 36.8; O2SAT 97; BMI 30.1
--- NOTE | 2021-01-24 19:09 | CT_ITS ---
PROCEDURE INFORMATION: Exam: CT Abdomen And Pelvis With Contrast Exam date and time: 01/24/2021 7:09 PM Age: 40 years old Clinical indication: Abdominal pain; Localized; Right lower quadrant (rlq); Patient HX: Rlq pain with nausea TECHNIQUE: Imaging protocol: Computed tomography of the abdomen and pelvis with contrast. Radiation optimization: All CT scans at this facility use at least one of these dose optimization techniques: automated exposure control; mA and/or kV adjustment per patient size (includes targeted exams where dose is matched to clinical indication); or iterative reconstruction. Contrast material: ISOVUE; Contrast volume: 75 ml; Contrast route: IV; COMPARISON: CT ANGIO CHEST 10/27/2020 7:31 AM FINDINGS: Liver: Normal. Gallbladder and bile ducts: Normal. Pancreas: Normal. Spleen: Splenic calcifications, compatible with prior granulomatous disease. Adrenal glands: Normal. No mass. Kidneys and ureters: Normal. Stomach and bowel: Normal. Appendix: Appendix normal. Intraperitoneal space: Small amount of pelvic free fluid, likely physiologic. Vasculature: Unremarkable. No abdominal aortic aneurysm. Lymph nodes: Unremarkable. No enlarged lymph nodes. Urinary bladder: Unremarkable as visualized. Reproductive: Unremarkable as visualized. Bones/joints: No acute abnormality. Soft tissues: Normal. IMPRESSION: No acute abdominal or pelvic abnormality.
[2021-01-24 19:17] LABS: Microscopic, Urine URINE MICROSCOPIC (MICROSCOPIC)
[2021-01-24 19:26] LABS: Appearance,Urine CLOUDY (Clear); Bilirubin,Urine Negative (Negative); Blood, Urine Negative (Negative); Color,Urine YELLOW (Yellow); Glucose,Urine (UA) Negative (Negative); Ketones,Urine TRACE (Negative); Leukocyte Esterase,Urine Negative (Negative); Nitrate,Urine Negative (Negative); PH,Urine 6.5 (5.0-8.5); Protein,Urine Negative (Negative); Specific Gravity, Urine 1.015 (1.005-1.030); Urobilinogen,Urine 0.2 EU/dl (0.2)
[2021-01-24 19:28] VITALS: BP 122/48; PULSE 74; O2SAT 100
[2021-01-24 19:35] LABS: Bacteria,Urine Trace /lpf; RBC,Urine Occasional #/hpf (0-3); WBC,Urine Occasional #/hpf (0-3)
--- NOTE | 2021-01-24 19:59 | HMH.EDGENADL ---
ED Disposition Clinical Impression: Right lower quadrant abdominal pain, Hot flashes Nausea and vomiting Qualifiers: Vomiting type: unspecified Vomiting Intractability: non-intractable Qualified Code(s): R11.2 - Nausea with vomiting, unspecified Disposition: Home, Self-Care Condition on Discharge: Good Instructions: DI for Acute Abdominal Pain Additional Instructions: Continue Zofran for nausea. Ibuprofen or Tylenol for pain. Additional instructions for ABDOMINAL PAIN: See your physician as soon as possible for further evaluation. Return immediately if worsening abdominal pain, vomiting, shortness of breath, fever, vomiting of blood or abdominal distention. Referrals: Ela Pizarro APRN [Primary Care Provider] - - Critical Care Critical Care Time: No Attestation: On 01/24/21, the high probability of a clinically significant, sudden or life threatening deterioration of the following system(s) required my full and direct attention, intervention and personal management. The time I documented below is in addition to time spent performing reported procedures but includes the following listed in this critical care notation. Medical Decision Making - Dirk Inquiry Pt receiving controlled substance: No Vital Signs: 01/24/21 17:30 01/24/21 18:57 01/24/21 19:28 Temperature 99.2 F 98.3 F Temperature Source Oral Oral Pulse Rate 74 Pulse Rate [Right Brachial] 101 H 65 Respiratory Rate 19 18 Blood Pressure 122/48 L Blood Pressure [Right Arm] 121/77 168/53 H Blood Pressure Mean [Right Arm] 91 91 Blood Pressure Source [Right Arm] Automatic Cuff Blood Pressure Position [Right Arm] Sitting 02 Sat by Pulse Oximetry 98 97 100 Oxygen Delivery Method Room Air 01/24/21 20:30 01/24/21 21:00 Temperature Temperature Source Pulse Rate 70 63 Pulse Rate [Right Brachial] Respiratory Rate Blood Pressure 112/69 120/69 Blood Pressure [Right Arm] Blood Pressure Mean [Right Arm] Blood Pressure Source [Right Arm] Blood Pressure Position [Right Arm] 02 Sat by Pulse Oximetry 100 98 Oxygen Delivery Method - Lab Data Lab Results 01/24/21 18:35: Urine Color Yellow, Urine Appearance Cloudy, Urine pH 6.5, Ur Specific [place] 1.015, Urine Protein Negative, Urine Glucose (UA) Negative, Urine Ketones Trace, Urine Blood Negative, Urine Nitrate Negative, Urine Bilirubin Negative, Urine Urobilinogen 0.2, Ur Leukocyte Esterase Negative, Urine RBC Occasional, Urine WBC Occasional, Ur Squamous Epith Cells 3-5, Urine Bacteria Trace 01/24/21 19:00: WBC 7.6, RBC 4.04 L, Hgb 11.6 L, Hct 36.3 L, MCV 89.9, MCH 28.8, MCHC 32.1, RDW 16.4, Plt Count 289, MPV 8.0, Neut % (Auto) 52.5, Lymph % (Auto) 37.2, [place] % (Auto) 6.1, Eos % (Auto) 3.1, Baso % (Auto) 1.2, Neut # (Auto) 4.0, Lymph # (Auto) 2.8, [place] # (Auto) 0.5, Eos # (Auto) 0.2, Baso # (Auto) 0.1 01/24/21 19:52: Sodium 140, Potassium 4.4, Chloride 106, Carbon Dioxide 27, Anion Gap 11.4, BUN 10, Creatinine 0.90 D, Estimated Creat Clear 101, Estimated GFR 69, Est GFR ( Amer) 84 D, Glucose 87, Calcium 9.4, Total Bilirubin 0.2, AST 26, ALT 15, Alkaline Phosphatase 92, Total Protein 7.6, Albumin 4.5, Globulin 3.1, Albumin/Globulin Ratio 1.5, Amylase 100, Lipase 77 01/24/21 19:52: Serum HCG, Qual Negative Result diagrams: 01/24/21 19:00 01/24/21 19:52 Orders (Tests/Meds): ED MEDICATIONS Discontinued Medications Generic Name Dose Route Start Last Admin Trade Name Arabella PRN Reason Stop Dose Admin Iopamidol 75 ml 01/24/21 20:26 01/24/21 20:27 Iopamidol-370 (76%);100ml Bottle IV 01/24/21 20:27 75 ml ONCE ONE Administration Ketorolac Tromethamine 30 mg 01/24/21 20:31 01/24/21 20:55 Ketorolac 30mg/Ml Vial IV 01/24/21 20:32 30 mg ONCE ONE Administration Ondansetron HCl 4 mg 01/24/21 20:31 01/24/21 20:55 Ondansetron 4mg/2ml Vial IV 01/24/21 20:32 4 mg ONCE ONE Administration Sodium Chloride 10 ml 01/24/21 20
[2021-01-24 20:15] LABS: Chloride 106 mmol/L (98-107); Sodium 140 mmol/L (136-145)
[2021-01-24 20:16] LABS: Potassium 4.4 mmoL/L (3.5-5.1)
[2021-01-24 20:17] LABS: HCG Qualitative, Serum Negative (Negative)
[2021-01-24 20:18] LABS: Alanine Aminotransferase 15 U/L (12-78); Alkaline Phosphatase 92 U/L (38-126); Amylase 100 U/L (30-110); Anion Gap 11.4 mEq/L (5-15); Aspartate Amino Transferase 26 U/L (14-36); Bilirubin,Total 0.2 mg/dl (0.2-1.3); Blood Urea Nitrogen 10 mg/dl (7-17); Carbon Dioxide 27 mmol/L (22.0-30.0); Creatinine Clearance Estimated 101 mL/min (50-200); Estimated Glomerular Filt Rate 69 ml/min (>60); GFR (African American) 84 ML/MIN (>60)
[2021-01-24 20:19] LABS: Albumin Level 4.5 g/dl (3.5-5.0); Albumin/Globulin Ratio 1.5 (1.1-1.8); Calcium 9.4 mg/dl (8.4-10.2); Globulin 3.1 g/dL (1.3-3.2); Glucose 87 mg/dl (74-100); Lipase 77 U/L (23-300); Total Protein,Serum 7.6 g/dl (6.3-8.2)
[2021-01-24 20:30] VITALS: BP 112/69; PULSE 70; O2SAT 100
[2021-01-24 20:52] LABS: Basophils # 0.1 K/mm3 (0-0.2); Basophils % 1.2 % (0.1-2.0); Eosinophils # 0.2 K/mm3 (0.0-0.4); Eosinophils % 3.1 % (0.1-12.0); Hematocrit 36.3 % (37.0-47.0); Hemoglobin 11.6 g/dL (12.2-16.2); Lymphocytes # 2.8 K/mm3 (0.7-4.5); Lymphocytes % 37.2 % (10-50); Mean Corpuscular HGB Conc 32.1 g/dL (31.8-35.4); Mean Corpuscular Hemoglobin 28.8 pg (27.0-31.2); Mean Corpuscular Volume 89.9 fl (81-99); Monocytes # 0.5 K/mm3 (0.1-1.0); Monocytes % 6.1 % (1.7-9.3); Neutrophils % 52.5 % (37.0-80.0); Platelet Count 289 K/mm3 (142-424); Red Blood Count 4.04 M/mm3 (4.20-5.40); Red Cell Distribution Width 16.4 % (11.5-17.5); White Blood Count 7.6 K/mm3 (4.8-10.8)
[2021-01-24 21:00] VITALS: BP 120/69; PULSE 63; O2SAT 98
[2021-01-24 21:25] VITALS: BP 121/73; PULSE 68; RESP 18; TEMP 36.9; O2SAT 99
== END 2021-01-24 21:33 | disposition home or self-care (01) ==
LOC: UTC 17:33 → ER 18:56
PROVIDERS: Emergency Medicine; Nurse Practitioner Family; Emergency Provider Emergency Medicine; PCP Nurse Practitioner Family
DX: R10.31 Right lower quadrant pain (principal); R23.2 Flushing; F17.210 Nicotine dependence, cigarettes, uncomplicated
CPT/HCPCS: 74177; 80053; 81001; 82150; 83690; 84703; 85025; 96374; 96375; 99283; J2405; Q9967

== ENCOUNTER 2021-03-19 18:56 | Emergency (ER) | payer MEDICAID, SELFPAY ==
[2021-03-19 21:01] VITALS: BP 00/00; PULSE 0; RESP 0; TEMP -17.7; TEMP 0
== END 2021-03-19 21:02 | disposition left against medical advice (07) ==
LOC: UTC 19:01
PROVIDERS: Emergency Provider Nurse Practitioner; PCP Nurse Practitioner Family
DX: Z53.21 Procedure and treatment not carried out due to patient leaving prior to being seen by health care provider (principal)

== ENCOUNTER 2021-04-14 16:48 | Emergency (ER) | payer MEDICAID, SELFPAY ==
[2021-04-14 17:00] VITALS: BP 132/78; PULSE 76; RESP 18; TEMP 36.8; O2SAT 98; BMI 28.3
--- NOTE | 2021-04-14 17:26 | ED_ITS ---
[facility] [place] Disposition Clinical Impression: Fever Qualifiers: Fever type: unspecified Qualified Code(s): R50.9 - Fever, unspecified Disposition: Home, Self-Care Condition on Discharge: Good Instructions: Preventing the Spread of Coronavirus Discharge Instructions Additional Instructions: You have been tested for COVID19. Please isolate yourself as if you are positive until test results received. Referrals: Ela Pizarro APRN [Primary Care Provider] - Time of Disposition: 17:32 Medical Decision Making - Dirk Inquiry Pt receiving controlled substance: No [facility] [place] HPI - General Stated complaint: fever/covid test Time Seen by Provider: 04/14/21 17:27 - History of Present Illness Provider Complaint: Patient woke up with a fever this am. No other symptoms. A few coworkers have been out for COVID19 so work requested she be tested. Onset (ago): day(s) (1) Relieving factors: none Exacerbating factors: none Associated symptoms: fever/chills Treatments prior to arrival: none - Related Data Home Medications Medication Instructions Recorded Confirmed ondansetron 4 mg disintegrating 4 mg PO Q6H 01/25/21 01/25/21 tablet Previous Rx's Medication Instructions Recorded terbinafine HCl 250 mg tablet 250 mg PO DAILY 70 Days #70 tab 01/25/21 Allergies Allergy/AdvReac Type Severity Reaction Status Date / Time No Known Allergies Allergy Verified 01/25/21 14:38 [facility] History - Hepatitis A Screen Attestation statement:: This patient has been screened for Hepatitis A risk factors. I have reviewed the patient's past medical history: Yes Other Surgeries: Yes: No Previous Surgery Amputation: No Fractures: No - Social History Smoking Status: Current every day smoker Tobacco Type: cigarettes # Packs/Day (cigarettes): 1 Alcohol Intake: never Alcohol Intake Frequency:: holidays/special occasions only Occupational Status: other Housing: house Household Members: significant other Family Hx:: No significant family history ROS Obtained: Yes All systems reviewed & no additional complaints - Constitutional Constitutional: Reports fever(s) Physical Exam - General General appearance: alert, in no apparent distress - Head Head exam: normocephalic - Eye Eye exam: Present: PERRL - ENT ENT exam: Present: normal oropharynx, TM's normal bilaterally - Neck Neck exam: Present: normal inspection. Absent: lymphadenopathy - Chest Chest inspection: Present: normal inspection, symmetric chest wall rise - Respiratory Respiratory exam: Present: normal lung sounds bilaterally - Cardiovascular Cardiovascular exam: Present: regular rate, normal rhythm - Neurological Exam Neurological exam: Present: alert, oriented X3 - Psychiatric Psychiatric exam: Present: normal affect, normal mood - Skin Skin exam: Present: warm, dry, intact
[2021-04-14 17:38] VITALS: BP 132/78; PULSE 76; RESP 18; TEMP 36.8; O2SAT 98
== END 2021-04-14 17:42 | disposition home or self-care (01) ==
PROVIDERS: Emergency Provider Physician Assistant; PCP Nurse Practitioner Family
DX: Z20.822 Contact with and (suspected) exposure to COVID-19 (principal); R50.9 Fever, unspecified; F17.210 Nicotine dependence, cigarettes, uncomplicated
CPT/HCPCS: 99202; C9803; G0463; U0003; U0005

== ENCOUNTER 2021-05-19 11:17 | Emergency (ER) | payer MEDICAID, SELFPAY ==
[2021-05-19 11:20] VITALS: BP 111/66; PULSE 85; RESP 16; TEMP 36.9; O2SAT 100; BMI 28.3
--- NOTE | 2021-05-19 11:46 | HMH.EDUTC ---
[facility] [place] Disposition Clinical Impression: Impacted cerumen of both ears Disposition: Home, Self-Care Condition on Discharge: Good Instructions: Cerumen Impaction Prescriptions: Carbamide Peroxide [Debrox] 5 drp OT ONCE 5 Days #15 ml Transmission Status: Pending to [facility] Referrals: Chuy Bravo MD [Primary Care Provider] - Time of Disposition: 12:06 Medical Decision Making - Dirk Inquiry Pt receiving controlled substance: No Vital Signs: 05/19/21 11:20 Temperature 98.5 F Temperature Source Oral Pulse Rate [Right Brachial] 85 Respiratory Rate 16 Blood Pressure [Right Arm] 111/66 Blood Pressure Mean [Right Arm] 81 Blood Pressure Source [Right Arm] Automatic Cuff Blood Pressure Position [Right Arm] Sitting 02 Sat by Pulse Oximetry 100 Oxygen Delivery Method Room Air [facility] [place] HPI - General Chief complaint: Urgent Treatment Center Stated complaint: ear pain Time Seen by Provider: 05/19/21 11:50 Mode of Arrival: Ambulatory Source of Information: Patient Limitations: No Limitations Description of Symptoms (Recalled from Triage Doc. by RN): PATIENT C/O RIGHT EAR PAIN WITH DECREASED HEARING ON AND OFF X 1 MONTH HEENT Symptoms (Recalled from RN notes): Yes Resp Symptoms (Recalled from RN notes): No Skin Symptoms (Recalled from RN notes): No MS Symptoms (Recalled from RN notes): No Functional Status (Recalled from RN notes): WNL - History of Present Illness Provider Complaint: 40 yr old female presents for rt ear pain for over one month - Related Data Home Medications Medication Instructions Recorded Confirmed ondansetron 4 mg disintegrating 4 mg PO Q6H 01/25/21 01/25/21 tablet Previous Rx's Medication Instructions Recorded terbinafine HCl 250 mg tablet 250 mg PO DAILY 70 Days #70 tab 01/25/21 Carbamide Peroxide [Debrox] 5 drp OT ONCE 5 Days #15 ml 05/19/21 Allergies Allergy/AdvReac Type Severity Reaction Status Date / Time No Known Allergies Allergy Verified 01/25/21 14:38 - Worker's Comp Is this a Worker's Comp case?: No [facility] History - Hepatitis A Screen Drug use history?: No High risk sexual behaviors?: No History of sexually transmitted infection?: No Currently employed?: No Childcare worker?: No Do you have indoor plumbing?: Yes Do you have electricity?: Yes Attestation statement:: This patient has been screened for Hepatitis A risk factors. I have reviewed the patient's past medical history: Yes Other Surgeries: Yes: No Previous Surgery Amputation: No Fractures: No - Social History Smoking Status: Current every day smoker Tobacco Type: cigarettes # Packs/Day (cigarettes): 1 Alcohol Intake: never Alcohol Intake Frequency:: holidays/special occasions only Occupational Status: other Housing: house Household Members: significant other Family Hx:: No significant family history ROS Obtained: Yes Systems reviewed as appropriate & no additional complaints - Constitutional Constitutional: Reports system reviewed and no additional complaints, except as docu, Denies fever(s) - Eyes Eyes: Reports system reviewed and no additional complaints, except as docu, Denies blurry vision - ENT Ears, Nose, Mouth, and Throat: Reports system reviewed and no additional complaints, except as docu, Reports otalgia - Cardiovascular Cardiovascular: Reports system reviewed and no additional complaints, except as docu, Denies chest pain - Respiratory Respiratory: Reports system reviewed and no additional complaints, except as docu, Denies change in phlegm color - Gastrointestinal Gastrointestingal: Reports: system reviewed and no additional complaints, except as docu. Denies: abdominal pain - Genitourinary Female Genitourinary: Reports system reviewed and no additional complaints, except as docu - Musculoskeletal Musculoskeletal: Reports system reviewed and no additional complaints, except as docu, Denies joint pain - Integumentary/Breasts Skin/
[2021-05-19 12:05] VITALS: BP 111/66; PULSE 85; RESP 16; TEMP 36.9; O2SAT 100
== END 2021-05-19 12:10 | disposition home or self-care (01) ==
PROVIDERS: Emergency Provider Nurse Practitioner Family; PCP Emergency Medicine
DX: H92.01 Otalgia, right ear (principal); H61.23 Impacted cerumen, bilateral; F17.210 Nicotine dependence, cigarettes, uncomplicated
CPT/HCPCS: 99202; G0463

== ENCOUNTER → 2021-07-17 14:35 | Outpatient (CLI) | payer MEDICAID, SELFPAY | PROVIDERS: PCP Emergency Medicine; Visit Provider Nurse Practitioner | DX: Z20.822 Contact with and (suspected) exposure to COVID-19 (principal) | CPT/HCPCS: C9803; U0003; U0005 ==

== ENCOUNTER 2021-12-23 13:05 | Emergency (ER) | payer MEDICAID, SELFPAY ==
[2021-12-23 14:42] VITALS: BP 111/63; PULSE 64; RESP 17; TEMP 36.6; O2SAT 98; BMI 29.9
--- NOTE | 2021-12-23 14:59 | HMH.EDUTC ---
[facility] [place] Disposition Clinical Impression: Cerumen impaction Qualifiers: Laterality: bilateral Qualified Code(s): H61.23 - Impacted cerumen, bilateral Disposition: Home, Self-Care Condition on Discharge: Good Instructions: DI for Cerumen Impaction Additional Instructions: Follow up with your Family Doctor if needed Straight to ER if any life threatening symptoms Return if needed Referrals: Chuy Bravo MD [Primary Care Provider] - As needed Time of Disposition: 15:17 Medical Decision Making - Dirk Inquiry Pt receiving controlled substance: No Dirk was queried for this patient: No Vital Signs: 12/23/21 14:42 Temperature 97.9 F Temperature Source Oral Pulse Rate [Left Radial] 64 Respiratory Rate 17 Blood Pressure [Right Arm] 111/63 Blood Pressure Mean [Right Arm] 79 02 Sat by Pulse Oximetry 98 - Lab Data Lab results reviewed: Yes: I reviewed the patient's lab results. [facility] [place] HPI - General Stated complaint: L ear ache Time Seen by Provider: 12/23/21 14:59 Source of Information: Patient Description of Symptoms (Recalled from Triage Doc. by RN): patient comes in today with left ear pain that has been going on for 4 days HEENT Symptoms (Recalled from RN notes): Yes Resp Symptoms (Recalled from RN notes): No Skin Symptoms (Recalled from RN notes): No MS Symptoms (Recalled from RN notes): No Functional Status (Recalled from RN notes): wnl - History of Present Illness Provider Complaint: Patient states that her left ear has been stopped up and hurts when she lays down for the last 4 days States that she wasnt sure if her ear was all stopped up or if she had an infection so she came in to get it looked at states that last time like this she had to have her ears flushed - Related Data Home Medications Medication Instructions Recorded Confirmed ondansetron 4 mg disintegrating 4 mg PO Q6H 01/25/21 01/25/21 tablet Previous Rx's Medication Instructions Recorded terbinafine HCl 250 mg tablet 250 mg PO DAILY 70 Days #70 tab 01/25/21 Carbamide Peroxide [Debrox] 5 drp OT ONCE 5 Days #15 ml 05/19/21 Allergies Allergy/AdvReac Type Severity Reaction Status Date / Time No Known Allergies Allergy Verified 12/23/21 14:44 - Worker's Comp Is this a Worker's Comp case?: No [facility] History - Hepatitis A Screen Attestation statement:: This patient has been screened for Hepatitis A risk factors. I have reviewed the patient's past medical history: Yes Other Surgeries: Yes: No Previous Surgery Amputation: No Fractures: No - Social History Smoking Status: Current every day smoker Tobacco Type: cigarettes # Packs/Day (cigarettes): 1 Alcohol Intake: never Alcohol Intake Frequency:: holidays/special occasions only Occupational Status: other Housing: house Household Members: significant other Family Hx:: No significant family history ROS Obtained: Yes All systems reviewed & no additional complaints, Yes Systems reviewed as appropriate & no additional complaints - Constitutional Constitutional: Reports system reviewed and no additional complaints, except as docu, Denies body ache, Denies chills, Denies fever(s) - Eyes Eyes: Reports system reviewed and no additional complaints, except as docu - ENT Ears, Nose, Mouth, and Throat: Reports system reviewed and no additional complaints, except as docu, Reports otalgia - Cardiovascular Cardiovascular: Reports system reviewed and no additional complaints, except as docu - Respiratory Respiratory: Reports system reviewed and no additional complaints, except as docu - Gastrointestinal Gastrointestingal: Reports: system reviewed and no additional complaints, except as docu Physical Exam - General General appearance: alert, in no apparent distress - Expanded ENT Exam TM/Canal exam: Bilateral TM: cerumen impaction - Respiratory Respiratory exam: Present: normal lung sounds bilaterally. Absent: respiratory distress - Cardiovascul
[2021-12-23 15:23] VITALS: BP 111/63; PULSE 64; RESP 17; TEMP 36.6
== END 2021-12-23 15:24 | disposition home or self-care (01) ==
PROVIDERS: Emergency Provider Nurse Practitioner; PCP Emergency Medicine
DX: H61.23 Impacted cerumen, bilateral (principal); Z72.0 Tobacco use
CPT/HCPCS: 99212; G0463

== ENCOUNTER → 2022-01-08 13:55 | Outpatient (CLI) | payer MEDICAID, SELFPAY ==
--- NOTE | 2022-01-08 14:20 | MM_ITS ---
PROCEDURE INFORMATION: Exam: MG Bilateral Diagnostic Breast Tomosynthesis Exam date and time: 01/08/2022 2:14 PM Age: 41 years old Clinical indication: Right breast palpable lump TECHNIQUE: Imaging protocol: Bilateral Diagnostic tomosynthesis and 2D mammography including computer-aided detection (CAD) when performed. Unilateral or bilateral exam. COMPARISON: 1. MG MM DIG MAMM BI DX W/CAD 11/02/2020 10:42 AM 2. US BREAST RT COMPLETE 11/02/2020 11:09 AM FINDINGS: MAMMOGRAPHY: There are scattered areas of fibroglandular density. A skin marker was placed over the palpable abnormality in the right lower outer quadrant. The spot compression views demonstrate a stable 1.3 cm well-circumscribed mass. There is no stellate mass, architectural distortion or suspicious microcalcifications in either breast to suggest malignancy. No skin thickening or axillary adenopathy. IMPRESSION: Palpable abnormality in the right breast corresponds to a mammographically stable right breast mass compared to prior examination dated 11/02/2020. A six-month follow-up diagnostic right mammogram is recommended for continued close surveillance ASSESSMENT: BI-RADS Category 3: Probably benign
== END ==
PROVIDERS: PCP Emergency Medicine; Visit Provider Nurse Practitioner Family
DX: N63.10 Unspecified lump in the right breast, unspecified quadrant (principal)
CPT/HCPCS: 77062; 77066; G0279

== ENCOUNTER 2022-02-09 08:31 | Emergency (ER) | payer MEDICAID, SELFPAY ==
[2022-02-09 08:40] VITALS: BP 118/74; PULSE 89; RESP 19; TEMP 36.8; O2SAT 98; BMI 29.1
[2022-02-09 08:53] VITALS: BP 118/74; PULSE 89; RESP 19; TEMP 36.8; O2SAT 98
--- NOTE | 2022-02-09 09:08 | HMH.EDUTC ---
[facility] [place] Disposition Clinical Impression: Upper respiratory infection Qualifiers: URI type: unspecified viral URI Qualified Code(s): J06.9 - Acute upper respiratory infection, unspecified Disposition: Home, Self-Care Condition on Discharge: Good Instructions: DI for Viral Upper Respiratory Infection -- Adult Additional Instructions: covid swab was sent to lab, call tomorrow for results. self isolate until test results are known to be negative No sign of a bacterial infection. Likely viral. Viruses can take 7-14 days to run their course. Nasal saline and bulb syringe or nose Jerri to remove nasal drainage to help with nasal congestion. Hard to eat, drink, sleep with nasal congestion so important to keep this cleaned out. Monitor temp. Tylenol or Motrin as needed for pain or fever Encourage fluids, water, Gatorade, Powerade, Pedialyte if infant/toddler/child Warm salt water gargles Warm fluids Sore throat lozenges Sleep elevated Humidifier/vaporizer Follow-up immediately for new or worsening symptoms or no noticeable improvement over the next 48-72 hours. Referrals: Chuy Bravo MD [Primary Care Provider] - Forms: Work/School Release Time of Disposition: 09:14 Medical Decision Making - Dirk Inquiry Pt receiving controlled substance: No Vital Signs: 02/09/22 08:40 02/09/22 08:53 Temperature 98.2 F 98.2 F Temperature Source Oral Pulse Rate 89 Pulse Rate [Right Brachial] 89 Respiratory Rate 19 19 Blood Pressure 118/74 Blood Pressure [Right Arm] 118/74 Blood Pressure Mean [Right Arm] 88 Blood Pressure Source [Right Arm] Automatic Cuff Blood Pressure Position [Right Arm] Sitting 02 Sat by Pulse Oximetry 98 Oxygen Delivery Method Room Air Orders (Tests/Meds): ORDERS Category Date Time Status Covid-19 Nasal PCR ([facility]) Routine Lab 02/09/22 08:43 Received [facility] [place] HPI - General Chief complaint: Urgent Treatment Center Stated complaint: chills,headche,sore throat Time Seen by Provider: 02/09/22 09:08 Mode of Arrival: Ambulatory Source of Information: Patient Limitations: No Limitations Description of Symptoms (Recalled from Triage Doc. by RN): PATIENT C/O DIARRHEA, CHILLS, AND HEADACHE SINCE YESTERDAY. RECENTLY EXPOSED TO COVID HEENT Symptoms (Recalled from RN notes): Yes Resp Symptoms (Recalled from RN notes): No Skin Symptoms (Recalled from RN notes): No MS Symptoms (Recalled from RN notes): No Functional Status (Recalled from RN notes): WNL - History of Present Illness Provider Complaint: 41 yr old female presents for diarrhea,chills,and [place] since yesterday. exposed to covid - Related Data Home Medications Medication Instructions Recorded Confirmed ondansetron 4 mg disintegrating 4 mg PO Q6H 01/25/21 01/25/21 tablet Previous Rx's Medication Instructions Recorded terbinafine HCl 250 mg tablet 250 mg PO DAILY 70 Days #70 tab 01/25/21 Carbamide Peroxide [Debrox] 5 drp OT ONCE 5 Days #15 ml 05/19/21 Allergies Allergy/AdvReac Type Severity Reaction Status Date / Time No Known Allergies Allergy Verified 12/23/21 14:44 - Worker's Comp Is this a Worker's Comp case?: No [facility] History - Hepatitis A Screen Attestation statement:: This patient has been screened for Hepatitis A risk factors. I have reviewed the patient's past medical history: Yes Other Surgeries: Yes: No Previous Surgery Amputation: No Fractures: No - Social History Smoking Status: Current every day smoker Tobacco Type: cigarettes # Packs/Day (cigarettes): 1 Alcohol Intake: never Alcohol Intake Frequency:: holidays/special occasions only Occupational Status: other Housing: house Household Members: significant other Family Hx:: No significant family history ROS Obtained: Yes Systems reviewed as appropriate & no additional complaints - Constitutional Constitutional: Reports system reviewed and no additional complaints, except as docu, Reports chills, Reports fever(s) - Eyes Eyes
== END 2022-02-09 09:18 | disposition home or self-care (01) ==
PROVIDERS: Emergency Provider Nurse Practitioner Family; PCP Emergency Medicine
DX: J06.9 Acute upper respiratory infection, unspecified (principal); Z72.0 Tobacco use; R68.83 Chills (without fever); R51.9 Headache, unspecified; R07.0 Pain in throat; Z20.822 Contact with and (suspected) exposure to COVID-19
CPT/HCPCS: 99212; C9803; G0463; U0003; U0005

== ENCOUNTER 2022-05-14 12:00 | Emergency (ER) | payer MEDICAID, SELFPAY ==
[2022-05-14 12:07] VITALS: BP 144/79; PULSE 96; RESP 15; O2SAT 99; BMI 28.3
[2022-05-14 12:16] LABS: Microscopic, Urine URINE MICROSCOPIC (MICROSCOPIC)
[2022-05-14 12:22] LABS: Appearance,Urine SL CLOUDY (Clear); Bilirubin,Urine Negative (Negative); Blood, Urine Negative (Negative); Color,Urine YELLOW (Yellow); Glucose,Urine (UA) Negative (Negative); Ketones,Urine Negative (Negative); Leukocyte Esterase,Urine TRACE (Negative); Nitrate,Urine POSITIVE (Negative); Protein,Urine Negative (Negative); Urobilinogen,Urine 0.2 EU/dl (0.2)
[2022-05-14 12:29] LABS: Urine Pregnancy, HCG Qual. Negative (Negative)
[2022-05-14 12:37] LABS: Bacteria,Urine Trace /lpf; WBC,Urine Occasional #/hpf (0-3)
--- NOTE | 2022-05-14 13:06 | HMH.EDGENADL ---
Discharge Plan Disposition Patient Disposition: Home, Self-Care Condition: Good Prescriptions Prescriptions: New ibuprofen 800 mg tablet 800 mg PO Q8HP PRN (Reason: moderate pain ) Qty: 15 0RF methocarbamol 750 mg tablet 750 mg PO Q6H Qty: 20 0RF No Action ondansetron 4 mg tablet,disintegrating 4 mg PO Q6H terbinafine HCl 250 mg tablet 250 mg PO DAILY 70 Days Qty: 70 0RF carbamide peroxide 15 ML drops 5 drp OT ONCE 5 Days Qty: 15 0RF Rx Instructions: 5 drops to left ear for 5 days Referrals Follow up/Referrals: Chuy Bravo MD [Primary Care Provider] - See instructions Activity Restrictions/Add. Instructions Additional Instructions/Restrictions: Additional instructions for BACK PAIN: See your physician as soon as possible for further evaluation. Return immediately if back pain becomes intolerable, or if fever, numbness or weakness of your legs, loss of control of your bowels or bladder. Urine culture has been performed, results generally take 2 to 3 days. Follow-up the results of this test with your primary care provider within 2 to 3 days. Clinical Impressions Clinical Impression: Low back pain Stand Alone Forms Stand Alone Forms: Work/School Release Instructions Patient Instructions: DI for Low Back Pain Discharge ED Provider: Rico Weller [facility] HPI General Chief complaint: Back Pain/Injury Stated complaint: lower back pain Time Seen by Provider: 05/14/22 13:00 Mode of Arrival: Ambulatory Source of Information: Patient Limitations: No Limitations Description of Symptoms (Recalled from ER Triage Doc. by RN): Pt states since friday morning she has had back pain, states it started on the right side and radiated to her left and now is all across her lower back, denies issues with urinating or any urogenital issues. History of Present Illness HPI narrative: States that Friday when laying in bed she had a sudden onset of a sharp pain in her right lower back which radiated to left side. Now she only has pain in her left lower lumbar area. Pain increases with movement, walking, position, touch. No injury or unusual activity recalled. Denies previous back problems. No urinary symptoms, no fever. No vomiting. No abdominal pain. No radiation down the legs. No numbness or weakness of the legs. No loss of bowel or bladder control. She has taken Tylenol without relief. She missed work today. Related Data Home Medications Medication Instructions Recorded Confirmed ondansetron 4 mg disintegrating 4 mg PO Q6H 01/25/21 01/25/21 tablet Previous Rx's Medication Instructions Recorded terbinafine HCl 250 mg tablet 250 mg PO DAILY 10 weeks #70 tabs 01/25/21 carbamide peroxide 6.5 % ear drops 5 drp OT ONCE 5 days #15 mL 05/19/21 ibuprofen 800 mg tablet 800 mg PO Q8HP PRN moderate pain 05/14/22 #15 tabs methocarbamol 750 mg tablet 750 mg PO Q6H #20 tabs 05/14/22 Allergies Allergy/AdvReac Type Severity Reaction Status Date / Time No Known Allergies Allergy Verified 12/23/21 14:44 PFSH PFSH Social History Smoking Status: Current every day smoker tobacco type: cigarettes packs per day: 1 second hand exposure: No alcohol intake: never current occupational status: other Travel in the last 8 weeks: None household members: significant other housing: house ROS Obtained: Yes Systems reviewed as appropriate & no additional complaints except as documented Constitutional Constitutional: Denies fever(s) and Denies weakness Gastrointestinal Gastrointestingal: Denies abdominal pain, fecal incontinence or vomiting Genitourinary Female Genitourinary: Denies difficulty voiding, Denies dysuria, Denies hematuria and Denies urinary incontinence Musculoskeletal Musculoskeletal: Reports back pain, Denies numbness and Denies radiating pain into limb Neurologic Neurologic: Denies numbness and Denies weakness Physical Exam Genera
[2022-05-14 13:14] VITALS: BP 115/57; PULSE 77; RESP 18; O2SAT 97
[2022-05-14 13:38] VITALS: BP 117/60; PULSE 78; RESP 18; TEMP 36.9; O2SAT 98
== END 2022-05-14 13:39 | disposition home or self-care (01) ==
PROVIDERS: Emergency Provider Emergency Medicine; PCP Emergency Medicine
DX: M54.50 Low back pain, unspecified (principal)
CPT/HCPCS: 81001; 81025; 87086; 96372; 99283

== ENCOUNTER → 2022-08-30 12:58 | Outpatient (CLI) | payer MEDICAID, SELFPAY ==
--- NOTE | 2022-08-30 13:04 | MM_ITS ---
PROCEDURE INFORMATION: Exam: US Right Breast, Complete MG Right Diagnostic Breast Tomosynthesis Exam date and time: 08/30/2022 1:52 PM Age: 41 years old Clinical indication: Short-term radiographic followup; Right breast; mass TECHNIQUE: Imaging protocol: Complete ultrasound of all four quadrants of the Right breast and the retroareolar regions, including ultrasound of the axilla when performed. Right Diagnostic tomosynthesis and 2D mammography including computer-aided detection (CAD) when performed. Unilateral or bilateral exam. COMPARISON: US BREAST RT COMPLETE 11/02/2020 11:09 AM FINDINGS: MAMMOGRAPHY: The breast tissue is composed of scattered areas of fibroglandular density. There is no stellate mass, architectural distortion or suspicious microcalcifications to suggest malignancy. Stable 1.3 cm mass in the anterior third of the right lateral breast. No skin thickening or axillary adenopathy. ULTRASOUND: Sonographic images of the right breast including the retroareolar region, all 4 quadrants and the axilla do not demonstrate any suspicious solid or cystic masses. Long-term stability has been established for an ovoid hypoechoic solid mass in the 8 o'clock axis 3 cm from the nipple measuring 1.5 x 0.7 x 1.2 cm cm in dimension. Few scattered subcentimeter cysts are otherwise noted. No architectural distortion or acoustical shadowing. No skin thickening or axillary adenopathy. IMPRESSION: No mammographic or sonographic evidence of malignancy. Long-term stability has been established for a right lower outer quadrant breast mass seen on mammography and sonography. The finding is considered benign.Annual bilateral mammographic screening is recommended in 6 months unless otherwise clinically indicated. ASSESSMENT: BI-RADS Category 2: Benign
== END ==
PROVIDERS: PCP Emergency Medicine; Visit Provider Emergency Medicine
DX: N63.41 Unspecified lump in right breast, subareolar (principal)
CPT/HCPCS: 76641; 77061; 77065; G0279

== ENCOUNTER 2022-09-02 16:20 | Emergency (ER) | payer MEDICAID, SELFPAY ==
[2022-09-02 17:00] VITALS: BP 119/76; PULSE 79; RESP 17; TEMP 37; O2SAT 98; BMI 27.2
--- NOTE | 2022-09-02 17:25 | EXP.UTC ---
Discharge Plan Disposition Patient Disposition: Home, Self-Care Condition: Good Prescriptions Prescriptions: New ondansetron 4 mg tablet,disintegrating 4 mg PO Q8H PRN (Reason: nausea and vomiting) Qty: 10 0RF No Action ondansetron 4 mg tablet,disintegrating 4 mg PO Q6H terbinafine HCl 250 mg tablet 250 mg PO DAILY 70 Days Qty: 70 0RF carbamide peroxide 15 ML drops 5 drp OT ONCE 5 Days Qty: 15 0RF Rx Instructions: 5 drops to left ear for 5 days ibuprofen 800 mg tablet 800 mg PO Q8HP PRN (Reason: moderate pain ) Qty: 15 0RF methocarbamol 750 mg tablet 750 mg PO Q6H Qty: 20 0RF Referrals Follow up/Referrals: Chuy Bravo MD [Primary Care Provider] - See instructions Activity Restrictions/Add. Instructions Additional Instructions/Restrictions: Drink extra fluids with and between meals. If you have difficulty drinking, try very small amounts of water or suck on ice chips. ? Avoid fruit juices, as these do not replace minerals and can actually increase diarrhea. ? Children and adults can use sports drinks to replenish electrolytes. Younger children and infants should use products formulated for children, like oral rehydration solutions. ? Eat food in small amounts and let your stomach recover. ? Get lots of rest. You may feel tired or weak. ? No greasy or fried foods for the next 24-48 hours BRAT diet Bananas Rice Apples and Viking ? Make sure to drink plenty of liquids ? Return if needed ? Straight to ER if any life threatening symptoms ? Zofran as prescribed ? Follow up with family doctor in the next 48-72 hours if no improvement or any worsening of symptoms Clinical Impressions Clinical Impression: Nausea vomiting and diarrhea Stand Alone Forms Stand Alone Forms: Work/School Release Instructions Patient Instructions: Diarrhea, Nausea and Vomiting-Adult Discharge ED Provider: Zahira Alva [facility] [place] HPI General Stated complaint: V&D Mode of Arrival: Ambulatory Source of Information: Patient Limitations: No Limitations Time Seen by Provider: 09/02/22 17:25 Description of Symptoms (Recalled from Triage Doc. by RN): PATIENT C/O VOMITING AND DIARRHEA SINCE LAST NIGHT HEENT Symptoms (Recalled from RN notes): No Resp Symptoms (Recalled from RN notes): No Skin Symptoms (Recalled from RN notes): No MS Symptoms (Recalled from RN notes): No Functional Status (Recalled from RN notes): WNL History of Present Illness Provider Complaint: Patient states that she has been having N/V/D since last night States that boyfriend had it over he weekend and now she has it States that last loose stool was around 8am this morning but she is still having some nausea and vomiting Related Data Home Medications Medication Instructions Recorded Confirmed ondansetron 4 mg disintegrating 4 mg PO Q6H 01/25/21 01/25/21 tablet Previous Rx's Medication Instructions Recorded terbinafine HCl 250 mg tablet 250 mg PO DAILY 10 weeks #70 tabs 01/25/21 carbamide peroxide 6.5 % ear drops 5 drp OT ONCE 5 days #15 mL 05/19/21 ibuprofen 800 mg tablet 800 mg PO Q8HP PRN moderate pain 05/14/22 #15 tabs methocarbamol 750 mg tablet 750 mg PO Q6H #20 tabs 05/14/22 ondansetron 4 mg disintegrating 4 mg PO Q8H PRN nausea and 09/02/22 tablet vomiting #10 tabs Allergies Allergy/AdvReac Type Severity Reaction Status Date / Time No Known Allergies Allergy Verified 12/23/21 14:44 Worker's Comp Is this a Worker's Comp case?: No [facility] Disclaimer: The information contained in this section may have been updated after the patient was seen, as this information can be updated by other users. Medical History (Updated 09/02/22 @ 17:28 by Zahira Alva APRN) Urinary tract infection Social History (Updated 09/02/22 @ 17:23 by Rianna Bishop RN) Smoking Status: Current every day smoker tobacco type: cigarettes
[2022-09-02 17:30] VITALS: BP 119/76; PULSE 79; RESP 17; TEMP 37; O2SAT 98
== END 2022-09-02 17:39 | disposition home or self-care (01) ==
PROVIDERS: Emergency Provider Nurse Practitioner; PCP Emergency Medicine
DX: R11.2 Nausea with vomiting, unspecified (principal); R19.7 Diarrhea, unspecified
CPT/HCPCS: 99212; 99213; G0463

== ENCOUNTER → 2022-12-24 18:10 | Outpatient (CLI) | payer MEDICAID, SELFPAY | PROVIDERS: Visit Provider Nurse Practitioner Family | DX: M79.675 Pain in left toe(s) (principal); B35.1 Tinea unguium | CPT/HCPCS: 87102; 87206; 87220 ==

== ENCOUNTER 2023-09-16 13:14 | Outpatient (CLI) | payer OTHER, SELFPAY | END 2023-09-16 23:59 | LOC: LAB.DROPOF 13:16 | PROVIDERS: PCP Student in an Organized Health Care Education/Training Program; Visit Provider Student in an Organized Health Care Education/Training Program | DX: M54.50 Low back pain, unspecified (principal) | CPT/HCPCS: 87086 ==

== ENCOUNTER 2023-10-07 21:34 | Outpatient (CLI) | payer OTHER, SELFPAY ==
[2023-10-10 14:59] LABS: Neisseria gonorrhoeae, NAA Negative (Negative)
== END 2023-10-07 23:59 ==
LOC: LAB.DROPOF 21:34
PROVIDERS: PCP Student in an Organized Health Care Education/Training Program; Visit Provider Student in an Organized Health Care Education/Training Program
DX: N89.8 Other specified noninflammatory disorders of vagina (principal); B95.2 Enterococcus as the cause of diseases classified elsewhere
CPT/HCPCS: 87086; 87491; 87591

== ENCOUNTER 2023-11-10 18:00 | Outpatient (CLI) | payer OTHER, SELFPAY ==
[2023-11-10 18:52] LABS: Basophils # 0.1 K/mm3 (0-0.2); Basophils % 1.2 % (0.1-2.0); Eosinophils # 0.3 K/mm3 (0.0-0.4); Eosinophils % 3.1 % (0.1-12.0); Hematocrit 43.2 % (37.0-47.0); Hemoglobin 13.7 g/dL (12.2-16.2); Lymphocytes # 2.9 K/mm3 (0.7-4.5); Lymphocytes % 34.5 % (10-50); Mean Corpuscular HGB Conc 31.7 g/dL (31.8-35.4); Mean Corpuscular Hemoglobin 32.2 pg (27.0-31.2); Mean Corpuscular Volume 101.7 fl (81-99); Mean Platelet Volume 10.9 fl (7.4-10.4); Monocytes # 0.4 K/mm3 (0.1-1.0); Monocytes % 4.4 % (1.7-9.3); Neutrophils # 4.8 K/mm3 (1.8-7.8); Neutrophils % 56.9 % (37.0-80.0); Platelet Count 227 K/mm3 (142-424); Red Blood Count 4.25 M/mm3 (4.20-5.40); Red Cell Distribution Width 14.1 % (11.5-17.5); White Blood Count 8.4 K/mm3 (4.8-10.8)
[2023-11-10 20:09] LABS: Alanine Aminotransferase 16 U/L (12-78); Albumin/Globulin Ratio 1.5 (1.1-1.8); Alkaline Phosphatase 97 U/L (38-126); Anion Gap 7.2 mEq/L (5-15); Aspartate Amino Transferase 23 U/L (14-36); Bilirubin,Total 0.3 mg/dl (0.2-1.3); Blood Urea Nitrogen 11 mg/dl (7-17); Calcium 9.3 mg/dl (8.4-10.2); Carbon Dioxide 27 mmol/L (22.0-30.0); Chloride 108 mmol/L (98-107); Chol/HDL Ratio 4.8 (1-3.5); Cholesterol 187 mg/dl (140-200); Estimated Glomerular Filt Rate 78 ml/min (>60); GFR (African American) 95 ML/MIN (>60); Globulin 2.7 g/dL (1.3-3.2); Glucose 107 mg/dl (74-100); HDL Cholesterol 39 mg/dl (40-60); Potassium 4.2 mmoL/L (3.5-5.1); Sodium 138 mmol/L (136-145); Total Protein,Serum 6.7 g/dl (6.3-8.2); Triglycerides 180 mg/dl (30-150); VLDL Cholesterol 36 mg/dL (0-40)
[2023-11-10 20:10] LABS: Hemoglobin A1C 5.2 % (4.0-6.0)
[2023-11-10 20:22] LABS: Direct LDL Cholesterol 101.16 mg/dL (100-129)
[2023-11-10 20:29] LABS: 25-OH Vitamin D, Total 41.6 ng/mL (30-100)
[2023-11-10 20:41] LABS: Thyroid Stimulating Hormone 1.84 uIU/mL (0.465-4.68)
[2023-11-10 21:17] LABS: Vitamin B12 207 pg/mL (239-931)
[2023-11-10 21:18] LABS: Folate 4.31 ng/mL
[2023-11-10 21:52] LABS: Ferritin 7.39 ng/ml (6.24-137)
== END 2023-11-10 23:59 | disposition home or self-care (01) ==
LOC: LAB.DROPOF 11-11 10:44
PROVIDERS: PCP Student in an Organized Health Care Education/Training Program; Visit Provider Student in an Organized Health Care Education/Training Program
DX: Z86.2 Personal history of diseases of the blood and blood-forming organs and certain disorders involving the immune mechanism (principal); Z13.21 Encounter for screening for nutritional disorder; Z79.899 Other long term (current) drug therapy
CPT/HCPCS: 80053; 80061; 82306; 82607; 82728; 82746; 83036; 84443; 85025

== ENCOUNTER 2024-04-19 11:24 | Emergency (ER) | payer OTHER, SELFPAY ==
[2024-04-19 11:50] VITALS: BP 108/58; PULSE 73; RESP 20; TEMP 36.6; O2SAT 99; BMI 26.6
--- NOTE | 2024-04-19 11:50 | EXP.UTC ---
Discharge Plan Disposition Patient Disposition: Home, Self-Care Condition: Good Prescriptions Prescriptions: New cyclobenzaprine 10 mg Tablet 10 mg PO BID PRN (Reason: Muscle Spasm) Qty: 20 0RF methylprednisolone 4 mg Tablets,Dose Pack 4 mg PO DIRECTED 6 Days Qty: 21 0RF Rx Instructions: Take 1 pack as directed for 6 days Referrals Follow up/Referrals: nOelia Muhammad PA [Primary Care Provider] - See instructions Activity Restrictions/Add. Instructions Additional Instructions/Restrictions: Go home and rest. It would be best if you rested tomorrow too. No heavy lifting & No twisting for the next few days. Take the medications as directed. The muscle relaxer (cyclobenzaprine--Flexeril) will make you drowsy, so don't drive or operate heavy machinery after taking it. Follow up with your regular doctor. GO TO THE ER FOR ANY WORSENING SYMPTOMS OR CONCERN, ESPECIALLY BOWEL OR BLADDER ISSUES, SADDLE AREA NUMBNESS, FEVER, ETC Clinical Impressions Clinical Impression: Low back pain Qualifiers: Chronicity: acute Back pain laterality: bilateral Sciatica presence: without sciatica Qualified Code(s): M54.50 - Low back pain, unspecified Stand Alone Forms Stand Alone Forms: Work/School Release Instructions Patient Instructions: Low Back Pain, DI for Low Back Pain, Cyclobenzaprine, Methylprednisolone Print Language Print Language: Jordanian Discharge ED Provider: Raudel Corral [facility] General Stated complaint: lower back pain-no accident Time Seen by Provider: 04/19/24 11:50 History of Present Illness Provider Complaint: She states that for the past 3 day she has had low back pain. She denies any injury or fall. She denies that the pain radiates down her legs or elsewhere. She denies any dysuria or other urinary symptoms. Related Data Previous Rx's ?Medication ?Instructions ?Recorded cyclobenzaprine 10 mg tablet 10 mg PO BID PRN Muscle Spasm #20 04/19/24 tabs methylprednisolone 4 mg tablets in 4 mg PO DIRECTED 6 days #21 tabs 04/19/24 a dose pack Allergies Allergy/AdvReac Type Severity Reaction Status Date / Time No Known Allergies Allergy Verified 12/31/23 08:58 [facility] Disclaimer: The information contained in this section may have been updated after the patient was seen, as this information can be updated by other users. Medical History History of anemia Pain due to onychomycosis of toenails of both feet Callus of foot Urinary tract infection Surgical History No significant past surgical history Family History Other No significant family history Social History Smoking Status: Current every day smoker tobacco type: cigarettes packs per day: 1 second hand exposure: No alcohol intake: never current occupational status: other Travel in the last 8 weeks: None household members: significant other housing: house ROS Obtained: Yes All systems reviewed & no additional complaints except as documented Constitutional Constitutional: Denies chills and Denies fever(s) Eyes Eyes: Denies eye discharge ENT Ears, Nose, Mouth, and Throat: Denies dizziness, Denies otalgia, Denies neck pain and Denies sore throat Cardiovascular Cardiovascular: Denies chest pain Respiratory Respiratory: Denies shortness of breath, Denies chest congestion, Denies cough, Denies stridor and Denies wheezing Gastrointestinal Gastrointestingal: Denies nausea or vomiting Genitourinary Female Genitourinary: Reports as per HPI, Denies dysuria, Denies urinary frequency, Denies urinary incontinence, Denies urinary hesitancy and Denies urinary urgency Musculoskeletal Musculoskeletal: Reports as per HPI, Reports back pain and Denies neck pain Integumentary/Breasts Skin/Breast: Denies rash Neurologic Neurologic: Denies dizziness and Denies paresthesias Allergic/Immunologic Allergic/Immunologic: Denies wheezing Physical Exam General General appearance: alert and in no apparent distress Head Head exam: atraumatic, normocephalic and normal inspection Eye Eye exam: Present normal appearance, PERRL and EOMI ENT ENT exam: Present normal exam, normal oropharynx, mucous membranes moist, TM's normal bilaterally and normal external ear exam Neck Neck exam: Present normal inspection, full ROM and trachea midline; Absent meningismus or lymphadenopathy Chest Chest inspection: Present normal inspection and symmetric chest wall rise; Absent tenderness Respiratory Respiratory exam: Present normal lung sounds bilaterally; Absent respiratory distress Cardiovascular Cardiovascular exam: Present regular rate and normal rhythm; Absent JVD Abdominal Exam Abdominal exam: Present soft and normal bowel sounds; Absent distention, tenderness or guarding Extremities Exam Extremities exam: Present normal inspection, full ROM and normal capillary refill; Absent calf tenderness Back Exam Back exam: Present normal inspection; Absent tenderness Neurological Exam Neurological exam: Present alert, oriented X3, CN II-XII intact, normal gait and reflexes normal; Absent motor sensory deficit Expanded Neurological Exam Speech: Present fluid speech Cranial nerves: Normal: EOM function (II, III, IV, ), facial sensation (V), facial palsy (VII), gag reflex (IX), spinal accessory function (XI) and tongue deviation (XII) Cerebellar function: normal gait Motor strength - LUE: 5/5 Motor strength - RUE: 5/5 Motor strength - LLE: 5/5 Motor strength - RLE: 5/5 Sensory exam upper extremity: Normal: light touch and 2 point discrimination Sensory exam lower extremity: Normal: light touch and 2 point discrimination DTR: 2+: biceps (L), biceps (R), patellar (L), patellar (R), Achilles tendon (L) and Achilles tendon (R) Spinal cord function: Absent saddle anesthesia Psychiatric Psychiatric exam: Present normal affect and normal mood Skin Skin exam: Present warm, dry, intact and normal color Lymphatic Lymphatic Findings: no adenopathy Medical Decision Making Medical Records Medical records reviewed: No I reviewed the patient's medical records. Screening: Per USPSTF and CDC recommendations, given the prevalence of disease in our region, it is our hospital?s policy to screen for HIV and viral Hepatitis for all patients aged 18 and over and those with ongoing risk factors. Dirk Inquiry Pt receiving controlled substance: No Lab Data Lab results reviewed: Yes I reviewed the patient's lab results.
[2024-04-19 12:21] LABS: Microscopic, Urine URINE MICROSCOPIC (MICROSCOPIC)
[2024-04-19 12:33] LABS: Appearance,Urine CLEAR (Clear); Bilirubin,Urine Negative (Negative); Blood, Urine Negative (Negative); Color,Urine YELLOW (Yellow); Glucose,Urine (UA) Negative (Negative); Ketones,Urine Negative (Negative); Leukocyte Esterase,Urine Negative (Negative); Nitrate,Urine Negative (Negative); Protein,Urine Negative (Negative); Specific Gravity, Urine >= 1.030 (1.005-1.030); Urobilinogen,Urine 0.2 EU/dl (0.2)
[2024-04-19 12:34] LABS: UTC Pregnancy Test, Urine Negative (Negative)
[2024-04-19 12:43] VITALS: BP 108/58; PULSE 73; RESP 20; TEMP 36.6; O2SAT 99
[2024-04-19 12:54] LABS: Bacteria,Urine Trace /lpf
== END 2024-04-19 12:45 | disposition home or self-care (01) ==
PROVIDERS: Emergency Provider Nurse Practitioner Family; PCP Student in an Organized Health Care Education/Training Program
DX: M54.50 Low back pain, unspecified (principal)
CPT/HCPCS: 81001; 81025; 99212; 99214; G0463

== ENCOUNTER 2024-04-20 06:01 | Emergency (ER) | payer SELFPAY ==
[2024-04-20] VITALS (8 sets, daily range): BP systolic 92–117; BP diastolic 48–64; PULSE 57–86; RESP 18; TEMP 36.6–36.8; O2SAT 99–100; BMI 26.6
--- NOTE | 2024-04-20 06:14 | CT_ITS ---
FINAL REPORT TECHNIQUE: After the administration of intravenous contrast, axial images were obtained through the abdomen and pelvis by computed tomography. The study was performed with techniques to keep radiation dose as low as reasonably achievable, (ALARA). Individual dose reduction techniques using automated exposure control or adjustment of mA and/or kV according to the patient's size were employed. CLINICAL HISTORY: left flank/low back pain COMPARISON: 01/24/2021 FINDINGS: Abdomen: The lung bases are clear. The liver parenchyma is homogeneous. The gallbladder is mildly distended. The spleen, pancreas, adrenals and kidneys appear unremarkable. The aorta is normal in caliber. There is no free fluid or adenopathy. Pelvis: The appendix is not identified. Uterus is present and lies eccentric to the right. There are small cysts or follicles in both ovaries. The [place] are enhancing. The urinary bladder is unremarkable. There is minimal free fluid, likely physiologic. IMPRESSION: Small cysts or follicles in both ovaries with minimal free fluid. Reviewed, Interpreted and Dictated by Hao Nuñez MD Transcribed by Yoly Gil Authenticated and [facility]
--- NOTE | 2024-04-20 06:14 | CT_ITS ---
FINAL REPORT TECHNIQUE: Axial images were performed through the lumbar spine by computed tomography. Sagittal reconstruction images were also performed. This study was performed with techniques to keep radiation doses as low as reasonably achievable, (ALARA). Individualized dose reduction techniques using automated exposure control or adjustment of mA and/or kV according to the patient''s size were employed. CLINICAL HISTORY: midline and left low back pain FINDINGS: Sagittal reconstruction images demonstrate no subluxation. The disc heights are preserved. L1-2: No significant disc bulge or protrusion. L2-3: Mild diffuse disc bulge with mild bilateral neural foraminal narrowing. L3-4: Moderate diffuse disc bulge is present. There is mild spinal and bilateral neural foraminal narrowing. L4-5: Moderate diffuse disc bulge is present. There is mild right and moderate to high-grade left neural foraminal narrowing. L5-S1: Mild diffuse disc bulge is present with mild to moderate bilateral neural foraminal narrowing. IMPRESSION: Multilevel degenerative disc disease with neural foraminal compromise, most evident on the left at L4-5. Reviewed, Interpreted and Dictated by Hao Nuñez MD Transcribed by Yoly Gil Authenticated and [facility]
[2024-04-20] MEDS: LIDOCAINE 5% TRANSDERMAL PATCH 1 EACH TP (06:22)
[2024-04-20] MEDS: ACETAMINOPHEN 500MG TAB 1000 MG PO (06:22)
--- NOTE | 2024-04-20 06:22 | HMH.EDGENADL ---
Discharge Plan Disposition Patient Disposition: Home, Self-Care Prescriptions Prescriptions: New indomethacin 25 mg capsule 25 mg PO TID PRN (Reason: back pain) Qty: 21 0RF Rx Instructions: administer with food or milk lidocaine 5 % adhesive patch,medicated 1 patch topical DAILY PRN (Reason: back pain) Qty: 15 0RF Rx Instructions: leave on most painful area for up to 12 hrs No Action cyclobenzaprine 10 mg Tablet 10 mg PO BID PRN (Reason: Muscle Spasm) Qty: 20 0RF methylprednisolone 4 mg Tablets,Dose Pack 4 mg PO DIRECTED 6 Days Qty: 21 0RF Rx Instructions: Take 1 pack as directed for 6 days Referrals Follow up/Referrals: Onelia Muhammad PA [Primary Care Provider] - See instructions Activity Restrictions/Add. Instructions Additional Instructions/Restrictions: At this time it was felt you are safe to be discharged home. If new or worsening symptoms please do not hesitate to return the emergency department. Please take your medications as prescribed and if symptoms persist in a week or so please follow-up with your family doctor for physical therapy referral and continued evaluation. Clinical Impressions Clinical Impression: Low back pain, Ovarian cyst Instructions Patient Instructions: DI for Low Back Pain Print Language Print Language: Faroese Discharge ED Provider: Russ Palm General Adult HPI <Russ Palm MD - Last Filed: 04/20/24 06:56> General Chief complaint: Back Pain/Injury Stated complaint: back pain Time Seen by Provider: 04/20/24 06:05 Mode of Arrival: Ambulatory Source of Information: Patient Limitations: No Limitations Description of Symptoms (Recalled from ER Triage Doc. by RN): Pt to ED with c/o left lower back pain X1 week. states she was seen in [facility] yesterday, and was given steroids and muscle relaxers. pt has also been taken ibuprofen for pain but states nothing is helping. Pt reports pain is worse with movement and started when she was sitting in a chair at work. History of Present Illness HPI narrative: 43-year-old female without significant past medical history presents for low back pain. She reports has been going on for about a week. She first noticed that when she was sitting in a chair. She was recently seen at the urgent care and prescribed steroids and muscle relaxer which has not helped. She reports no lower extremity weakness, numbness tingling. She reports no urinary symptoms. She reports no recent fever or infection, denies surgery in the back. Reports pain is both midline and left lateral. Denies any recent trauma. Related Data Previous Rx's ?Medication ?Instructions ?Recorded cyclobenzaprine 10 mg tablet 10 mg PO BID PRN Muscle Spasm #20 04/19/24 tabs methylprednisolone 4 mg tablets in 4 mg PO DIRECTED 6 days #21 tabs 04/19/24 a dose pack indomethacin 25 mg capsule 25 mg PO TID PRN back pain #21 caps 04/20/24 lidocaine 5 % topical patch 1 patch topical DAILY PRN back 04/20/24 pain #15 ea Allergies Allergy/AdvReac Type Severity Reaction Status Date / Time No Known Allergies Allergy Verified 12/31/23 08:58 PFSH <Russ Palm MD - Last Filed: 04/20/24 06:56> [facility] Disclaimer: The information contained in this section may have been updated after the patient was seen, as this information can be updated by other users. Medical History History of anemia Pain due to onychomycosis of toenails of both feet Callus of foot Urinary tract infection Surgical History No significant past surgical history Family History Other No significant family history Social History Smoking Status: Current every day smoker tobacco type: cigarettes packs per day: 1 second hand exposure: No alcohol intake: never current occupational status: other Travel in the last 8 weeks: None household members: significant other housing: house <Russ Palm MD - Last Filed: 04/20/24 06:56> ROS Obtained: Yes All systems reviewed & no additional complaints except as documented Physical Exam <Russ Palm MD - Last Filed: 04/20/24 06:56> General General appearance: alert and in no apparent distress Head Head exam: atraumatic and normocephalic Eye Eye exam: Present normal appearance, PERRL and EOMI ENT ENT exam: Present normal oropharynx and normal external ear exam Neck Neck exam: Present normal inspection and full ROM Chest Chest inspection: Present normal inspection and symmetric chest wall rise; Absent tenderness Respiratory Respiratory exam: Present normal lung sounds bilaterally; Absent respiratory distress Cardiovascular Cardiovascular exam: Present regular rate and normal rhythm Abdominal Exam Abdominal exam: Present soft; Absent distention, tenderness or guarding Extremities Exam Extremities exam: Present normal inspection; Absent edema or joint swelling Back Exam Back exam: Present normal inspection and tenderness (Midline, left lower, left CVA) Neurological Exam Neurological exam: Present alert and oriented X3; Absent motor sensory deficit Psychiatric Psychiatric exam: Present normal affect and normal mood Skin Skin exam: Present warm, dry and normal color Lymphatic Lymphatic Findings: no adenopathy Medical Decision Making <Russ Palm MD - Last Filed: 04/20/24 06:56> Medical Records Medical records reviewed: Yes I reviewed the patient's medical records. Screening: Per USPSTF and CDC recommendations, given the prevalence of disease in our region, it is our hospital?s policy to screen for HIV and viral Hepatitis for all patients aged 18 and over and those with ongoing risk factors. Dirk Inquiry Pt receiving controlled substance: No Dirk was queried for this patient: No Vital Signs: 04/20/24 06:03 04/20/24 07:40 04/20/24 07:42 Temperature 98.3 F Temperature Source Oral Pulse Rate 65 75 Pulse Rate [Left Radial] 86 Respiratory Rate 18 Blood Pressure 92/58 L 92/58 L Blood Pressure [Right Arm] 117/64 Blood Pressure Mean 65 Blood Pressure Mean [Right Arm] 81 Blood Pressure Source [Right Arm] Automatic Cuff Blood Pressure Position [Right Arm] Sitting 02 Sat by Pulse Oximetry 100 100 99 Oxygen Delivery Method Room Air Room Air Room Air 04/20/24 08:00 04/20/24 08:30 04/20/24 09:00 Temperature Temperature Source Pulse Rate 62 57 L 58 L Pulse Rate [Left Radial] Respiratory Rate Blood Pressure 93/55 L 104/56 L 93/48 L Blood Pressure [Right Arm] Blood Pressure Mean 65 67 61 Blood Pressure Mean [Right Arm] Blood Pressure Source [Right Arm] Blood Pressure Position [Right Arm] 02 Sat by Pulse Oximetry 100 100 100 Oxygen Delivery Method Room Air Room Air Room Air Lab Data Lab results reviewed: Yes I reviewed the patient's lab results. Lab Results 04/20/24 06:17: WBC 7.4, RBC 4.11 L, Hgb 13.8, Hct 42.5, MCV 103.4 H, MCH 33.5 H, MCHC 32.4, RDW 13.6, Plt Count 242, MPV 9.4, Neut % (Auto) 61.8, Lymph % (Auto) 29.1, [place] % (Auto) 4.3, Eos % (Auto) 3.3, Baso % (Auto) 1.4, Neut # (Auto) 4.6, Lymph # (Auto) 2.2, Finney # (Auto) 0.3, Eos # (Auto) 0.2, Baso # (Auto) 0.1, Sodium 136, Potassium 4.7, Chloride 104, Carbon Dioxide 27, Anion Gap 9.7, BUN 18 H, Creatinine 0.80, Estimated Creat Clear 104, Estimated GFR 78, Est GFR ( Amer) 95, Glucose 103 H, Calcium 9.2, Total Bilirubin 0.6, AST 24, ALT 16, Alkaline Phosphatase 58, Total Protein 7.2, Albumin 4.1, Globulin 3.1, Albumin/Globulin Ratio 1.3, Serum HCG, Qual Negative 04/20/24 06:20: Urine Color Yellow, Urine Appearance Clear, Urine pH 6.0, Ur Specific [place] >= 1.030, Urine Protein Negative, Urine Glucose (UA) Negative, Urine Ketones Negative, Urine Blood Negative, Urine Nitrate Negative, Urine Bilirubin Negative, Urine Urobilinogen 0.2, Ur Leukocyte Esterase Negative, Urine RBC None, Urine WBC Occasional, Ur Squamous Epith Cells 3-5, Urine Bacteria Trace 04/20/24 06:17 04/20/24 06:17 Orders (Tests/Meds): ED MEDICATIONS Discontinued Medications Generic Name Dose Route Start Last Admin Trade Name Arabella PRN Reason Stop Dose Admin Acetaminophen 1,000 mg 04/20/24 06:14 04/20/24 06:22 Acetaminophen 500mg Tab PO 04/20/24 06:15 1,000 mg ONCE ONE Administration Iopamidol 75 ml 04/20/24 07:11 04/20/24 07:11 Iopamidol-370 (76%);100ml Bottle IV 04/20/24 07:12 75 ml ONCE ONE Administration Ketorolac Tromethamine 30 mg 04/20/24 07:44 04/20/24 07:52 Ketorolac 30mg/Ml Vial IV 04/20/24 07:45 30 mg ONCE ONE Administration Lidocaine 1 each 04/20/24 06:21 04/20/24 06:22 Lidocaine 5% Transdermal Patch TP 04/20/24 06:22 1 each ONCE ONE Administration Methocarbamol 1,000 mg 04/20/24 07:44 04/20/24 07:51 Methocarbamol 500mg Tablet PO 04/20/24 07:45 1,000 mg ONCE ONE Administration Sodium Chloride 10 ml 04/20/24 07:11 04/20/24 07:11 Sodium Chloride 0.9% 10ml Syr (Rad Only) IV 04/20/24 07:12 10 ml ONCE ONE Administration ORDERS Category Date Time Status CT abdomen pelvis w con Stat Cat Scan 04/20/24 06:[address] lumbar spine wo con Stat Cat Scan 04/20/24 06:14 Completed CBC w/Auto Diff [Complete Blood Count Auto Diff] Stat Lab 04/20/24 06:17 Completed CMP [Comprehensive Metabolic Panel] Stat Lab 04/20/24 06:17 Completed HCG Qualitative, Serum Stat Lab 04/20/24 06:17 Completed HIV (1&2) Antibody Rapid Stat Lab 04/20/24 06:17 Received Hep C Ab with Reflex to RNA Stat Lab 04/20/24 06:17 Received UA [Urinalysis and Microscopic] Stat Lab 04/20/24 06:20 Completed Medical Decision Narrative: 43-year-old female without significant past medical history presents for 1 week of midline low back and left lateral low back pain. History was obtained via interactive discussion with patient. On arrival, patient is [afebrile, hemodynamically stable, satting appropriately, alert, oriented x4, GCS 15], moving all extremities spontaneously. Full physical exam performed and significant for midline and left lateral and left CVA tenderness Differential includes but is not limited to musculoskeletal back pain, kidney stone, pyelonephritis, disc herniation, spinal cord pathology. No significant red flags on history. Patient was given Tylenol, lidocaine patch for symptomatic management and correction of underlying abnormalities. Workup initiated including CBC CMP UA CT Abdo pelvis IV contrast, CT lumbar spine. At this time care handed off to oncoming physician. <Varun Reilly MD - Last Filed: 04/20/24 09:55> Vital Signs: 04/20/24 06:03 04/20/24 07:40 04/20/24 07:42 Temperature 98.3 F Temperature Source Oral Pulse Rate 65 75 Pulse Rate [Left Radial] 86 Respiratory Rate 18 Blood Pressure 92/58 L 92/58 L Blood Pressure [Right Arm] 117/64 Blood Pressure Mean 65 Blood Pressure Mean [Right Arm] 81 Blood Pressure Source [Right Arm] Automatic Cuff Blood Pressure Position [Right Arm] Sitting 02 Sat by Pulse Oximetry 100 100 99 Oxygen Delivery Method Room Air Room Air Room Air 04/20/24 08:00 04/20/24 08:30 04/20/24 09:00 Temperature Temperature Source Pulse Rate 62 57 L 58 L Pulse Rate [Left Radial] Respiratory Rate Blood Pressure 93/55 L 104/56 L 93/48 L Blood Pressure [Right Arm] Blood Pressure Mean 65 67 61 Blood Pressure Mean [Right Arm] Blood Pressure Source [Right Arm] Blood Pressure Position [Right Arm] 02 Sat by Pulse Oximetry 100 100 100 Oxygen Delivery Method Room Air Room Air Room Air Lab Data Lab Results 04/20/24 06:17: WBC 7.4, RBC 4.11 L, Hgb 13.8, Hct 42.5, MCV 103.4 H, MCH 33.5 H, MCHC 32.4, RDW 13.6, Plt Count 242, MPV 9.4, Neut % (Auto) 61.8, Lymph % (Auto) 29.1, Finney % (Auto) 4.3, Eos % (Auto) 3.3, Baso % (Auto) 1.4, Neut # (Auto) 4.6, Lymph # (Auto) 2.2, [place] # (Auto) 0.3, Eos # (Auto) 0.2, Baso # (Auto) 0.1, Sodium 136, Potassium 4.7, Chloride 104, Carbon Dioxide 27, Anion Gap 9.7, BUN 18 H, Creatinine 0.80, Estimated Creat Clear 104, Estimated GFR 78, Est GFR ( Amer) 95, Glucose 103 H, Calcium 9.2, Total Bilirubin 0.6, AST 24, ALT 16, Alkaline Phosphatase 58, Total Protein 7.2, Albumin 4.1, Globulin 3.1, Albumin/Globulin Ratio 1.3, Serum HCG, Qual Negative 04/20/24 06:20: Urine Color Yellow, Urine Appearance Clear, Urine pH 6.0, Ur Specific [place] >= 1.030, Urine Protein Negative, Urine Glucose (UA) Negative, Urine Ketones Negative, Urine Blood Negative, Urine Nitrate Negative, Urine Bilirubin Negative, Urine Urobilinogen 0.2, Ur Leukocyte Esterase Negative, Urine RBC None, Urine WBC Occasional, Ur Squamous Epith Cells 3-5, Urine Bacteria Trace Orders (Tests/Meds): ED MEDICATIONS Discontinued Medications Generic Name Dose Route Start Last Admin Trade Name Arabella PRN Reason Stop Dose Admin Acetaminophen 1,000 mg 04/20/24 06:14 04/20/24 06:22 Acetaminophen 500mg Tab PO 04/20/24 06:15 1,000 mg ONCE ONE Administration Iopamidol 75 ml 04/20/24 07:11 04/20/24 07:11 Iopamidol-370 (76%);100ml Bottle IV 04/20/24 07:12 75 ml ONCE ONE Administration Ketorolac Tromethamine 30 mg 04/20/24 07:44 04/20/24 07:52 Ketorolac 30mg/Ml Vial IV 04/20/24 07:45 30 mg ONCE ONE Administration Lidocaine 1 each 04/20/24 06:21 04/20/24 06:22 Lidocaine 5% Transdermal Patch TP 04/20/24 06:22 1 each ONCE ONE Administration Methocarbamol 1,000 mg 04/20/24 07:44 04/20/24 07:51 Methocarbamol 500mg Tablet PO 04/20/24 07:45 1,000 mg ONCE ONE Administration Sodium Chloride 10 ml 04/20/24 07:11 04/20/24 07:11 Sodium Chloride 0.9% 10ml Syr (Rad Only) IV 04/20/24 07:12 10 ml ONCE ONE Administration ORDERS Category Date Time Status CT abdomen pelvis w con Stat Cat Scan 04/20/24 06:[address] lumbar spine wo con Stat Cat Scan 04/20/24 06:14 Completed CBC w/Auto Diff [Complete Blood Count Auto Diff] Stat Lab 04/20/24 06:17 Completed CMP [Comprehensive Metabolic Panel] Stat Lab 04/20/24 06:17 Completed HCG Qualitative, Serum Stat Lab 04/20/24 06:17 Completed HIV (1&2) Antibody Rapid Stat Lab 04/20/24 06:17 Received Hep C Ab with Reflex to RNA Stat Lab 04/20/24 06:17 Received UA [Urinalysis and Microscopic] Stat Lab 04/20/24 06:20 Completed Medical Decision Narrative: 43-year-old female without significant past medical history presents for 1 week of midline low back and left lateral low back pain. History was obtained via interactive discussion with patient. On arrival, patient is [afebrile, hemodynamically stable, satting appropriately, alert, oriented x4, GCS 15], moving all extremities spontaneously. Full physical exam performed and significant for midline and left lateral and left CVA tenderness Differential includes but is not limited to musculoskeletal back pain, kidney stone, pyelonephritis, disc herniation, spinal cord pathology. No significant red flags on history. Patient was given Tylenol, lidocaine patch for symptomatic management and correction of underlying abnormalities. Workup initiated including CBC CMP UA CT Abdo pelvis IV contrast, CT lumbar spine. At this time care handed off to oncoming physicianNavjot Reilly upon assumption of care patient is hemodynamically stable. Workup thus far reviewed by me, hematologic labs have no significant leukocytosis, no anemia, no MOLLY or critical electrolyte abnormality, hCG negative, urinalysis interpreted by me and not consistent with infection, no hematuria. CT lumbar spine informally visualized by me, no acute displaced fracture. Upon repeat evaluation patient was resting comfortable in bed with improvement of her symptoms. CT lumbar spine shows multilevel degenerative disc disease with neuroforaminal compromise at L4/L5. CT abdomen pelvis shows small cyst or follicles in both ovaries with likely physiologic free fluid. Her cysts are symmetric and not large enough to cause torsion so workup further with this was considered but will be deferred. Given this patient is appropriate for outpatient management at this time will be discharged with a course of indomethacin and was given return precautions. Procedures <Russ Palm MD - Last Filed: 04/20/24 06:56> Risk/Benefits of Procedure(s) Were Explained: Yes Critical Care <Russ Palm MD - Last Filed: 04/20/24 06:56> Critical Care Time Critical Care Time: No
[2024-04-20 06:27] LABS: Basophils # 0.1 K/mm3 (0-0.2); Basophils % 1.4 % (0.1-2.0); Eosinophils # 0.2 K/mm3 (0.0-0.4); Eosinophils % 3.3 % (0.1-12.0); Hematocrit 42.5 % (37.0-47.0); Hemoglobin 13.8 g/dL (12.2-16.2); Lymphocytes # 2.2 K/mm3 (0.7-4.5); Lymphocytes % 29.1 % (10-50); Mean Corpuscular HGB Conc 32.4 g/dL (31.8-35.4); Mean Corpuscular Hemoglobin 33.5 pg (27.0-31.2); Mean Corpuscular Volume 103.4 fl (81-99); Mean Platelet Volume 9.4 fl (7.4-10.4); Monocytes # 0.3 K/mm3 (0.1-1.0); Monocytes % 4.3 % (1.7-9.3); Neutrophils # 4.6 K/mm3 (1.8-7.8); Neutrophils % 61.8 % (37.0-80.0); Platelet Count 242 K/mm3 (142-424); Red Blood Count 4.11 M/mm3 (4.20-5.40); Red Cell Distribution Width 13.6 % (11.5-17.5); White Blood Count 7.4 K/mm3 (4.8-10.8)
[2024-04-20 06:38] LABS: Microscopic, Urine URINE MICROSCOPIC (MICROSCOPIC)
[2024-04-20 06:43] LABS: Appearance,Urine CLEAR (Clear); Bilirubin,Urine Negative (Negative); Blood, Urine Negative (Negative); Color,Urine YELLOW (Yellow); Glucose,Urine (UA) Negative (Negative); Ketones,Urine Negative (Negative); Leukocyte Esterase,Urine Negative (Negative); Nitrate,Urine Negative (Negative); Protein,Urine Negative (Negative); Specific Gravity, Urine >= 1.030 (1.005-1.030); Urobilinogen,Urine 0.2 EU/dl (0.2)
[2024-04-20 06:44] LABS: Albumin Level 4.1 g/dl (3.5-5.0); Chloride 104 mmol/L (98-107); Potassium 4.7 mmoL/L (3.5-5.1); Sodium 136 mmol/L (136-145)
[2024-04-20 06:47] LABS: Alanine Aminotransferase 16 U/L (12-78); Albumin/Globulin Ratio 1.3 (1.1-1.8); Alkaline Phosphatase 58 U/L (38-126); Anion Gap 9.7 mEq/L (5-15); Aspartate Amino Transferase 24 U/L (14-36); Bilirubin,Total 0.6 mg/dl (0.2-1.3); Blood Urea Nitrogen 18 mg/dl (7-17); Calcium 9.2 mg/dl (8.4-10.2); Carbon Dioxide 27 mmol/L (22.0-30.0); Creatinine Clearance Estimated 104 mL/min (50-200); Estimated Glomerular Filt Rate 78 ml/min (>60); GFR (African American) 95 ML/MIN (>60); Globulin 3.1 g/dL (1.3-3.2); Glucose 103 mg/dl (74-100); Total Protein,Serum 7.2 g/dl (6.3-8.2)
[2024-04-20 06:50] LABS: HCG Qualitative, Serum Negative (Negative)
[2024-04-20 07:09] LABS: Bacteria,Urine Trace /lpf; WBC,Urine Occasional #/hpf (0-3)
[2024-04-20] MEDS: SODIUM CHLORIDE 0.9% 10ML SYR (RAD ONLY) 10 ML IV (07:11)
[2024-04-20] MEDS: IOPAMIDOL-370 (76%);100ML BOTTLE 75 ML IV (07:11)
--- NOTE | 2024-04-20 07:43 | PC.NURSE ---
ROUNDED ON PT, WARM BLANKET AND PILLOWS PROVIDED. PT REPORTS PAIN IS THE SAME MD NOTIFIED
--- NOTE | 2024-04-20 07:44 | PC.NURSE ---
Rounded on patient, no needs voiced at this time.
[2024-04-20] MEDS: METHOCARBAMOL 500MG TABLET 1000 MG PO (07:51)
[2024-04-20] MEDS: KETOROLAC 30MG/ML VIAL 30 MG IV (07:52)
--- NOTE | 2024-04-20 08:22 | PC.NURSE ---
DR KAPLAN AT BEDSIDE TO REEVALUATE PT
--- NOTE | 2024-04-20 09:40 | PC.NURSE ---
Rounded on patient, patient voiced that she did not need anything at this moment.
--- NOTE | 2024-04-20 09:47 | PC.NURSE ---
Called radiology for CT reads
[2024-04-20 10:07] LABS: HIV (1&2) Antibody Rapid NONREACTIVE (NONREACTIVE)
[2024-04-21 05:11] LABS: HCV Ab Non Reactive (Non Reactive)
== END 2024-04-20 10:14 | disposition home or self-care (01) ==
PROVIDERS: Emergency Provider Emergency Medicine; PCP Student in an Organized Health Care Education/Training Program
DX: N83.209 Unspecified ovarian cyst, unspecified side (principal)
CPT/HCPCS: 72131; 74177; 80053; 81001; 84703; 85025; 86803; 87389; 96374; 99285; J1885; Q9967